=== PATIENT | female | born 1970 | race Caucasian/White ===

== ENCOUNTER 2021-05-20 19:05 | Inpatient (IN) | payer OTHER ==
[~2021-05-20] VITALS: Ht 167.6 cm; Wt 196.6 kg
--- NOTE | ~2021-05-20 | EMS ---
[place] [address] EMS Patient Care Report Name: DEBORAH COLBERT Room #: 246-P ADM IN M.R.#: [id number] Admission: 05/20/21 Attend Phys: Charisma Ashby MD Discharge: Date of : 70 Report #: [id number] THIS REPORT FOR: //name// Report Transmitted: 05/22/2021 11:18 EMS Care Summary [place], [place]/[facility] Incident [id number] @ 05/20/2021 18:24 Incident [address] [place] [address] Patient DEBORAH COLBERT Female, 50 Years 1970 Patient Address [address] [place] [address] Patient History Hypertension (HTN),Type 2 Diabetes,Novel Coronavirus (COVID-19), Patient Allergies No known allergies, Patient Medications Other, Chief Complaint WEAK Disposition Transported No Lights/[place] Dispatch Reason Chest Pain (Non-Traumatic) Transported To [facility] Narrative WE ARRIVED ON SCENE TO FIND FAMILY AT HOUSE OF PT WHO LIVES ALONE. PT WAS LYING ON HER BEDROOM FLOOR. PT IS MORBIDLY OBESE AND HAS BEEN UNABLE TO GET UP AND PER FAMILY IT SOUNDS LIKE PT HAS BEEN THERE MOST OF THE DAY AND IT APPEARS PT HAS BEEN LYING THERE FOR SOME TIME TOO. PT WAS FEELING [place] [address] EMS Patient Care Report Name: DEBORAH COLBERT Room #: 246-P ADM IN M.R.#: [id number] Admission: 05/20/21 Attend Phys: Charisma Ashby MD Discharge: Date of : 70 Report #: [id number] FLOOR WHEN TRYING TO GET OUT OF BED AND HAS NO INJURY FROM THAT SHE SAID. PT SEEMED A LITTLE DISORIENTED SEVERAL TIMES DURING ASSESTMMENT. PT WAS ABLE TO PROVIDE CORRECT ANSERS BUT IT TOOK HER A MOMENT TO FOCUS. PT O2 SAT GAVE SEVERAL READINGS OF 87% TO 95%. PT THEN TOLD US SHE TESTED POSITIVE FOR COVID ON WEDNESDAY (3 DAYS AGO). PT HAD BEEN COUGHING WHILE ON SCENE WITH US AND AFTER WE GOT PT OFF THE FLOOR AND ON TO HER BED SITTING UPRIGHT. PT WITH THIS WEAKNESS AND FEVER DECIDED TO GO TO ER. PT TRANSPORTED AND HAD NO OTHER COMPLAINTS EN ROUTE. CARE HANDED OVER TO ER R. Initial Vitals @18:49P: 110,R: 18,Pain: 0/10,GCS: 15,SpO2: 88, @18:30P: 106,R: 18,BP: 110/66,Pain: 0/10,GCS: 15,Temp: 100.1F,Glucose: 216,SpO2: 97,Revised Trauma: 12, Assessments @18:28MENTAL:Person Oriented,Event Oriented,Place Oriented,Time Oriented,SKIN:Hot,HEENT:Neck/Airway: No Abnormalities,LUNG SOUNDS:General: No Abnormalities,ABDOMEN:General: No Abnormalities,PELVIS//GI:EXTREMITIES:Left Arm: No Abnormalities,Right Arm: No Abnormalities,Left Leg: No Abnormalities,Right Leg: No Abnormalities,PULSE:Radial: 2+ Normal,NEURO:No Abnormalities, Impression COVID-19 - Confirmed by testing Procedures @18:28ALS AssessmentResponse: UnchangedSucceeded@18:35Oxygen FlowRate: 3 Device: Nasal Cannula (NC) Response: Unchanged@18:503-Lead ECGResponse: UnchangedSucceeded Timeline 18:23,Call Received 18:23,Dispatch Notified 18:24,Dispatched 18:25,En Route 18:27,On Scene 18:28,At Patient 18:28,ALS Assessment,Response: UnchangedSucceeded, 18:30,BP: 110/66 M,PULSE: 106,RR: 18 R,SPO2: 97 Ox,ETCO2: ,B,PAIN: 0,GCS: 15, 18:35,Oxygen FlowRate: 3 Device: Nasal Cannula (NC) Response: Unchanged 18:49,BP: / M,PULSE: 110,RR: 18 R,SPO2: 88 Ox,ETCO2: ,BG: ,PAIN: 0,GCS: 15, 18:50,3-Lead ECG,Response: UnchangedSucceeded, 18:52,Depart Scene 18:58,At Destination 19:23,Call Closed [address] [address] EMS Patient Care Report Name: DEBORAH COLBERT Room #: 246-P ADM IN M.R.#: [id number] Admission: 05/20/21 Attend Phys: Chairsma Ashby MD Discharge: Date of : 70 Report #: [id number] Disclaimer v1.1 Copyright 2021 [employer] This EMS Care Summary contains data elements from the applicable legal record (which may be displayed differently). It is designed to provide pertinent information for the following purposes: continuity of care, clinical quality, and state data reporting. The complete legal record is available to ED staff and administrators of the receiving hospital in [employer]'s Patient Tracker. All data is provided "as is."
--- NOTE | ~2021-05-20 | EMS ---
[place] [id number] EMS Patient Care Report Name: DEBORAH COLBERT Room #: 246-P ADM IN M.R.#: [id number] Admission: 05/20/21 Attend Phys: Charisma Ashby MD Discharge: Date of : 70 Report #: [id number] THIS REPORT FOR: //name// Report Transmitted: 05/21/2021 09:20 EMS Care Summary [place], [place]/[facility] Incident [id number] @ 05/20/2021 18:24 Incident Location [address] [place] [address] Patient DEBORAH COLBERT Female, 50 Years 1970 Patient Address [address] [place] [address] Patient History Hypertension (HTN),Type 2 Diabetes,Novel Coronavirus (COVID-19), Patient Allergies No known allergies, Patient Medications Other, Chief Complaint WEAK Disposition Transported No Lights/[place] Dispatch Reason Chest Pain (Non-Traumatic) Transported To [facility] Narrative WE ARRIVED ON SCENE TO FIND FAMILY AT HOUSE OF PT WHO LIVES ALONE. PT WAS LYING ON HER BEDROOM FLOOR. PT IS MORBIDLY OBESE AND HAS BEEN UNABLE TO GET UP AND PER FAMILY IT SOUNDS LIKE PT HAS BEEN THERE MOST OF THE DAY AND IT APPEARS PT HAS BEEN LYING THERE FOR SOME TIME TOO. PT WAS FEELING [place] [address] EMS Patient Care Report Name: DEBORAH COLBERT Room #: 246-P ADM IN M.R.#: [id number] Admission: 05/20/21 Attend Phys: Charisma Ashby MD Discharge: Date of : 70 Report #: [id number] FLOOR WHEN TRYING TO GET OUT OF BED AND HAS NO INJURY FROM THAT SHE SAID. PT SEEMED A LITTLE DISORIENTED SEVERAL TIMES DURING ASSESTMMENT. PT WAS ABLE TO PROVIDE CORRECT ANSERS BUT IT TOOK HER A MOMENT TO FOCUS. PT O2 SAT GAVE SEVERAL READINGS OF 87% TO 95%. PT THEN TOLD US SHE TESTED POSITIVE FOR COVID ON WEDNESDAY (3 DAYS AGO). PT HAD BEEN COUGHING WHILE ON SCENE WITH US AND AFTER WE GOT PT OFF THE FLOOR AND ON TO HER BED SITTING UPRIGHT. PT WITH THIS WEAKNESS AND FEVER DECIDED TO GO TO ER. PT TRANSPORTED AND HAD NO OTHER COMPLAINTS EN ROUTE. CARE HANDED OVER TO ER R. Initial Vitals @18:49P: 110,R: 18,Pain: 0/10,GCS: 15,SpO2: 88, @18:30P: 106,R: 18,BP: 110/66,Pain: 0/10,GCS: 15,Temp: 100.1F,Glucose: 216,SpO2: 97,Revised Trauma: 12, Assessments @18:28MENTAL:Person Oriented,Event Oriented,Place Oriented,Time Oriented,SKIN:Hot,HEENT:Neck/Airway: No Abnormalities,LUNG SOUNDS:General: No Abnormalities,ABDOMEN:General: No Abnormalities,PELVIS//GI:EXTREMITIES:Left Arm: No Abnormalities,Right Arm: No Abnormalities,Left Leg: No Abnormalities,Right Leg: No Abnormalities,PULSE:Radial: 2+ Normal,NEURO:No Abnormalities, Impression COVID-19 - Confirmed by testing Procedures @18:28ALS AssessmentResponse: UnchangedSucceeded@18:35Oxygen FlowRate: 3 Device: Nasal Cannula (NC) Response: Unchanged@18:503-Lead ECGResponse: UnchangedSucceeded Timeline 18:23,Call Received 18:23,Dispatch Notified 18:24,Dispatched 18:25,En Route 18:27,On Scene 18:28,At Patient 18:28,ALS Assessment,Response: UnchangedSucceeded, 18:30,BP: 110/66 M,PULSE: 106,RR: 18 R,SPO2: 97 Ox,ETCO2: ,B,PAIN: 0,GCS: 15, 18:35,Oxygen FlowRate: 3 Device: Nasal Cannula (NC) Response: Unchanged 18:49,BP: / M,PULSE: 110,RR: 18 R,SPO2: 88 Ox,ETCO2: ,BG: ,PAIN: 0,GCS: 15, 18:50,3-Lead ECG,Response: UnchangedSucceeded, 18:52,Depart Scene 18:58,At Destination 19:23,Call Closed [address] [address] EMS Patient Care Report Name: DEBORAH COLBERT Room #: 246-P ADM IN M.R.#: [id number] Admission: 05/20/21 Attend Phys: Charisma Ashby MD Discharge: Date of : 70 Report #: [id number] Disclaimer v1.1 Copyright 202 [employer] This EMS Care Summary contains data elements from the applicable legal record (which may be displayed differently). It is designed to provide pertinent information for the following purposes: continuity of care, clinical quality, and state data reporting. The complete legal record is available to ED staff and administrators of the receiving hospital in [facility]'s Patient Tracker. All data is provided "as is."
[2021-05-20 19:06] VITALS: BP 139/53
[2021-05-20 19:32] LABS: HEMATOCRIT 36.6 % (37.0-47.0); HEMOGLOBIN 11.9 gm/dL (12.0-15.0); MCH 27.5 pg (26.0-34.0); MCHC 32.5 g/dL (28.0-37.0); MCV 84.7 fL (80.0-100.0); PLATELET COUNT 271 thou/uL (150-400); RBC 4.33 mil/uL (4.20-5.00); RDW 15.7 % (10.5-14.5); WBC 18.2 thou/uL (4.0-11.0)
[2021-05-20 19:37] LABS: BE(vivo) 4.9 mmol/L (-2 to +3); PO2 76.5 mmHg (80.0-100.0); pH 7.393 (7.360-7.450)
[2021-05-20 19:44] LABS: CALCIUM 8.1 mg/dL (8.5-10.1); CREATININE 1.9 mg/dL (0.6-1.0)
[2021-05-20 20:01] LABS: ALBUMIN 2.6 g/dL (3.4-5.0); TOTAL BILIRUBIN 0.7 mg/dL (0.2-1.0); TOTAL PROTEIN 7.5 g/dL (6.4-8.2); TROPONIN-I 0.19 ng/mL (<0.06)
[2021-05-20 20:18] LABS: ABSOLUTE NEUTROPHILS 15.7 thou/uL (1.4-8.2); ANISOCYTOSIS 1+; PLATELET ESTIMATE NORMAL; POIKILOCYTOSIS 1+; POLYCHROMASIA 1+; SCHISTOCYTES 1+
[2021-05-20 21:26] LABS: URINE BILIRUBIN NEGATIVE (Negative); URINE BLOOD 2+ (Negative); URINE CLARITY SL CLOUDY; URINE COLOR YELLOW; URINE GLUCOSE-RANDOM* NEGATIVE (Negative); URINE KETONES NEGATIVE (Negative); URINE LEUKOCYTES-REFLEX 1+ (Negative); URINE NITRITE-REFLEX NEGATIVE (Negative); URINE PROTEIN (DIPSTICK) TRACE (Negative); URINE SPECIFIC GRAVITY >= 1.030 (1.005-1.035); URINE UROBILINOGEN 0.2 E.U./dl (0.2-1.0)
[2021-05-20 21:45] LABS: SQUAMOUS 4-10 Moderate /LPF (0-3); WBC CLUMPS Few (None Seen)
[2021-05-20 21:46] LABS: BACTERIA-REFLEX >30 Many /HPF (None Seen); CRYSTALS None Seen /LPF (None Seen); HYALINE CASTS 4-10 Moderate /LPF (None Seen); MUCUS 4-6 Moderate strn/LPF (None Seen)
[2021-05-20 22:12] VITALS: BP 149/56
[2021-05-20 23:47] VITALS: BP 122/62
[2021-05-21] VITALS (32 sets, daily range): BP systolic 85–136; BP diastolic 37–82
--- NOTE | 2021-05-21 00:56 | NUR ---
This RN admitted patient to room 246 at 0010 in the morning. Patient remains stable on the Bipap for now. This RN spoke to Janee,sister, at 0056 to answer all questions and update family.
[2021-05-21] MEDS ORDERED: HYDROCHLOROTHIA25 M1 PO (01:39)
[2021-05-21] MEDS ORDERED: LIPITOR 40 MG T40 M1 PO (01:39)
[2021-05-21] MEDS ORDERED: LOSARTAN POTAS100 MG PO (01:40)
[2021-05-21] MEDS ORDERED: CLONIDINE HCL0.1 MG PO (01:40)
[2021-05-21 02:36] LABS: HEMATOCRIT 35.7 % (37.0-47.0); HEMOGLOBIN 11.5 gm/dL (12.0-15.0); MCH 27.3 pg (26.0-34.0); MCHC 32.1 g/dL (28.0-37.0); RBC 4.2 mil/uL (4.20-5.00); RDW 15.4 % (10.5-14.5); WBC 14.6 thou/uL (4.0-11.0)
[2021-05-21 04:27] LABS: BE(vivo) 3.3 mmol/L (-2 to +3); HCO3 29.6 mmol/L (22.0-26.0); PCO2 52.7 mmHg (35.0-45.0); PO2 70.8 mmHg (80.0-100.0); pH 7.368 (7.360-7.450); sO2 93.5 % (92.0-98.0)
[2021-05-21] MEDS ORDERED: METFORMIN HCL500 MG PO (05:05)
[2021-05-21] MEDS ORDERED: METOPROLOL SUC200 MG PO (05:05)
[2021-05-21] MEDS ORDERED: NORVASC5 MG PO (05:05)
[2021-05-21 05:13] LABS: ALBUMIN 2.3 g/dL (3.4-5.0); CALCIUM 7.5 mg/dL (8.5-10.1); CREATININE 1.3 mg/dL (0.6-1.0); DIRECT BILIRUBIN 0.2 mg/dL (<0.1-0.2); PHOSPHORUS 2.8 mg/dL (2.5-4.9); POTASSIUM 3.9 mmol/L (3.5-5.1); TOTAL BILIRUBIN 0.4 mg/dL (0.2-1.0); TOTAL PROTEIN 6.9 g/dL (6.4-8.2); TROPONIN-I 0.31 ng/mL (<0.06)
--- NOTE | 2021-05-21 07:48 | EKG ---
[address] [place] [address] ELECTROCARDIOGRAM REPORT Name: DEBORAH COLBERT Room #: 246-P ADM IN M.R.#: [id number] Admission: 05/20/21 Attend Phys: Rishi Flood MD Discharge: Date of : 70 Report #: [id number] [facility] ED Test Date: 2021-05-20 Test Time: 19:18:13 Pat Name: DEBORAH COLBERT Department: Room: 246 Gender: F [employer] Attendant: JESSICA : 1970 Requested By: Jackson Armstrong Order Number: [id number] MD: Shaun Alas Measurements Intervals [place] Rate: 104 P: 44 AR: 152 QRS: 16 QRSD: 83 T: 72 QT: 347 QTc: 457 Interpretive Statements Pacemaker spikes or artifacts Sinus tachycardia Low voltage, precordial leads Artifact in lead(s) I,III,aVR,aVL,aVF No previous ECG available for comparison Electronically Signed On 05-21-2021 7:48:30 CDT by Shaun Alas [email or web address] <ELECTRONICALLY SIGNED> By: Shaun Alas MD, [facility] 05/21/21 0748 17 17 Shaun Alas MD, [facility] /EPI
--- NOTE | 2021-05-21 10:40 | NUR ---
vat consulted for cvad, pt is unable to tolerate hob down. DISCUSSED PICC INSERTION PT IS AGREEABLE. DUE TO MORBID OBESITY, ONLY CEPHALIC VESSELS VISIBLE. ATTEMPTED BOTH ARM, UNSUCCESSFUL. PRIMARY RN NOTIFIES AND PT WILL BE REFERED TO IR.
--- NOTE | 2021-05-21 11:40 | NUR ---
Chart review. COVID +, Discussed during los with hospitalist and unite rounds. Requiring BIPAP 100% Unable to visit with her, on enhanced isolation. Cm note she came in through er, family was unable to reach her, checked on her and found her on floor at her home. She had pfizer covid vaccine x 2. Cm spoke with her brother rocky wong [phone], he primary contact for her. Annmarie lives home alone, independent. Zenon own medication. works outside the home at [employer] in [employer]. She keeps her medical stuff private per rocky. Will cont following as needed for dc needs.
--- NOTE | 2021-05-21 19:44 | NUR ---
This RN spoke to Veena Loja NP regarding patients temperature of 100.3. Discussed holding off to tylenol for now. No orders received, will continue to monitor.
--- NOTE | 2021-05-21 20:20 | NUR ---
RN removed bipap to help patient with oral care, patient did not tolerate well. Desaturated to 77% and took a long time to sole layer hand. Will continue to monitor.
--- NOTE | 2021-05-21 20:43 | NUR ---
PATIENT'S SISTER AND BROTHER, VIKI, CALLED FROM [phone] AND THEY WERE UPDATED AND EDUCATED ON THE PATIENT'S CONDITION AND PLAN OF CARE. JOZEF HANNA, AND THE PATIENT'S MOTHER FACETIMED WITH THE PATIENT FROM [phone]. DURING THAT TIME, THE TOBACCO STEMMER TALKED WITH ALL OF THEM IN THE ROOM.
[2021-05-21 21:12] LABS: BE(vivo) 6.1 mmol/L (-2 to +3); HCO3 32.2 mmol/L (22.0-26.0); PCO2 53.1 mmHg (35.0-45.0); PO2 57.6 mmHg (80.0-100.0); sO2 89.5 % (92.0-98.0)
--- NOTE | 2021-05-21 23:55 | NUR ---
This RN and team intubated patient at [address] Samayoa. Discussed with patient prior thoroughly and talked to Alfonso, brother. Patient facetimed family before intubation. Patient remains on maximum support and is thoroughly sedated. Will continue to monitor.
[2021-05-22] VITALS (33 sets, daily range): BP systolic 87–137; BP diastolic 53–87
[2021-05-22 01:13] LABS: BE(vivo) 3.7 mmol/L (-2 to +3); PCO2 60.2 mmHg (35.0-45.0); PO2 68.5 mmHg (80.0-100.0); sO2 92.1 % (92.0-98.0)
[2021-05-22 02:10] LABS: GLYCOHEMOGLOBIN (HGB A1C) 7.3 % (4.8-5.6)
[2021-05-22 03:15] LABS: HEMATOCRIT 33.8 % (37.0-47.0); HEMOGLOBIN 10.9 gm/dL (12.0-15.0); MCH 27.8 pg (26.0-34.0); MCHC 32.4 g/dL (28.0-37.0); MCV 85.8 fL (80.0-100.0); RBC 3.94 mil/uL (4.20-5.00); RDW 15.6 % (10.5-14.5); WBC 12.1 thou/uL (4.0-11.0)
[2021-05-22 03:26] LABS: ALBUMIN 2.2 g/dL (3.4-5.0); CALCIUM 8.1 mg/dL (8.5-10.1); CREATININE 0.9 mg/dL (0.6-1.0); DIRECT BILIRUBIN 0.1 mg/dL (<0.1-0.2); PHOSPHORUS 2.5 mg/dL (2.6-4.7); POTASSIUM 4.2 mmol/L (3.5-5.1); TOTAL BILIRUBIN 0.4 mg/dL (0.2-1.0); TOTAL PROTEIN 6.8 g/dL (6.4-8.2)
--- NOTE | 2021-05-22 08:40 | NUR ---
Updated brother, Fidel, regarding patient status. Extensive education done with him re: plan of care and interventions. Questions answered.
[2021-05-22 11:02] LABS: BE(vivo) 3.2 mmol/L (-2 to +3); PCO2 56.4 mmHg (35.0-45.0); PO2 126.4 mmHg (80.0-100.0); pH 7.344 (7.360-7.450); sO2 98.3 % (92.0-98.0)
--- NOTE | 2021-05-22 12:52 | NUR ---
Per Dr MALLOY, discontinue IV maintenance fluids once tube feed at goal and water flushes. Add 1 packet beneprotein in each water flush
--- NOTE | 2021-05-22 14:21 | NUR ---
Per Dr. Samayoa, ok not to attempt proning patinet due to patient habitus. Patient currently oxygenating well with APRV settings. Dr. Samayoa spoke to patient's brother, Fidel to notify him of patient status and contraindications to proning at this time.
--- NOTE | 2021-05-22 14:38 | NUR ---
A RIGHT IJ #6F TRIPLE LUMEN CENTRAL LINE WAS PLACED AFTER A BEDSIDE TIMEOUT WAS COMPLETED PER HOSPITAL POLICY. THE 25CM LINE WAS ADVANCED TO 7CM EXTERNAL. A STAT CHEST XRAY CONFIRMED LINE IN GOOD POSITION FOR USE. ACID TREATER NOTIFIED.
--- NOTE | 2021-05-22 15:03 | HC ---
[facility] [place] [address] CONSULTATION Name: DEBORAH COLBERT Room #: 246-P ADM IN M.R.#: [id number] Admission: 05/20/21 Attend Phys: Charisma Ashby MD Discharge: Date of : 70 Report #: [id number] THIS REPORT FOR: cc: FAM - No family physician/PCP FAM - No family physician/PCP Cedric Lloyd MD ~ DATE OF SERVICE: 05/21/2021 INFECTIOUS DISEASE CONSULTATION ATTENDING PHYSICIAN: Dr. Ashby REASON FOR EVALUATION: COVID-19 infection, complicated by pneumonitis, respiratory failure, fall, with rhabdomyolysis. HISTORY OF PRESENT ILLNESS: Chart reviewed. The patient examined. This is a 50-year-old woman with known history of diabetes mellitus as well as hypertension, who was brought to the Emergency Room subsequent to a fall. She has no recollection. She is not aware of how long she was down. Noted she has not been feeling well prior to last weekend and she was tested for COVID-19 on Wednesday, which had been 05/18/2021. She was confirmed to be positive. When she was found, she had saturations in the 60s. She was supplied with oxygen and now currently is on 100% BiPAP. She is seen in the intensive care unit. She is fairly alert. Again, she has no recollection of the events. Evaluation in the Emergency Room, ABGs; pH 7.393, pCO2 of 52, pO2 of 76.5, on 100%. Lactic acid of 2.5. Procalcitonin elevated at 6.89. White count of 18.2. Creatinine was elevated at 1.9. Chest x-ray did show bilateral pulmonary opacities. Urinalysis with 16-25 white cells. Blood cultures collected at time of admission are sterile thus far. She was noted to be febrile on admission as well at 102.1, currently is afebrile. She was empirically started on therapy with doxycycline, ceftriaxone, remdesivir and azithromycin. ALLERGIES: None known. MEDICATIONS: Include ceftriaxone, ascorbic acid, famotidine, enoxaparin, dexamethasone, ipratropium, zinc, doxycycline, remdesivir. PAST MEDICAL HISTORY: Diabetes mellitus type 2, hyperlipidemia, hypertension, morbid obesity. SOCIAL HISTORY: Nonsmoker, no ethanol, no illicit drug use. FAMILY HISTORY: Noncontributory. REVIEW OF SYSTEMS: Otherwise, unremarkable. Denies any significant GI related complaints at this point. Had had some diarrhea that seemed to improve. [address] [address] CONSULTATION Name: DEBORAH COLBERT Room #: 246-P [facility]#: [id number] Admission: 05/20/21 Attend Phys: Charisma Ashby MD Discharge: Date of : 70 Report #: [id number] PHYSICAL EXAMINATION: GENERAL: She is morbidly obese. She is generally alert, mild to moderate distress. VITAL SIGNS: Temperature 99, pulse 86, respirations 25, blood pressure is 124/76. SKIN: Warm, dry, no rashes. HEENT: BiPAP in place. Normocephalic. Extraocular muscles intact. NECK: Supple. LUNGS: Diminished overall due to her ____. HEART: Distant, appears to be regular. ABDOMEN: Obese, large pannus, soft, nontender. EXTREMITIES: No cyanosis. GENITOURINARY AND RECTAL: Deferred. LABORATORY AND IMAGING DATA: CPK elevated at ____ consistent with rhabdomyolysis. Troponin 0.38. Chest x-ray in followup patchy nodular infiltrates. Blood cultures sterile thus far. Electrolytes: Sodium 143, potassium 3.9, chloride 104, bicarbonate is 30, anion gap of 9, BUN and creatinine 38 and 1.3 down from 1.9, AST 134, ALT of 62, albumin 2.3, total protein 6.9. Estimated GFR of 43. ABG; pH 7.368, pCO2 of 52.7, pO2 of 70.8 on 100% BiPAP. Most recent CBC: White count of 14.6, H and H 11.5 and 35.7, platelets of 248. ASSESSMENT: 1. COVID-19 infection, complicated by pneumonitis and respiratory failure with acute respiratory distress syndrome. 2. Encephalopathy with apparent fall, lack of recollection, ____ rhabdomyolysis and renal failure, does have hepatic injury as well. 3. Complicated urinary tract infection. 4. Diabetes mellitus. 5. Hypertension. 6. Morbid obesity. PLAN: We will continue empiric antibacterial therapy. We will adjust dosing and regimen. She remains quite tenuous at this point. Continue ____ ventilation therapy. There is concern she may require intubation mechanical ventilatory support. We will await cultures. <ELECTRONICALLY SIGNED> By: Cedric Lloyd MD 05/22/21 1503 [id number] Cedric Lloyd MD /nt
[2021-05-23] VITALS (45 sets, daily range): BP systolic 99–158; BP diastolic 61–96
[2021-05-23 02:46] LABS: HEMATOCRIT 34.3 % (37.0-47.0); HEMOGLOBIN 11.1 gm/dL (12.0-15.0); MCH 27.6 pg (26.0-34.0); MCHC 32.5 g/dL (28.0-37.0); RBC 4.03 mil/uL (4.20-5.00); RDW 15.7 % (10.5-14.5); WBC 11.5 thou/uL (4.0-11.0)
[2021-05-23 03:52] LABS: CALCIUM 8.1 mg/dL (8.5-10.1); DIRECT BILIRUBIN 0.1 mg/dL (<0.1-0.2); PHOSPHORUS 3.8 mg/dL (2.6-4.7); POTASSIUM 4.3 mmol/L (3.5-5.1); TOTAL BILIRUBIN 0.4 mg/dL (0.2-1.0); TOTAL PROTEIN 6.3 g/dL (6.4-8.2)
[2021-05-23 04:09] LABS: CREATININE 1.9 mg/dL (0.6-1.0)
[2021-05-23 04:49] LABS: BE(vivo) 0.4 mmol/L (-2 to +3); HCO3 26.8 mmol/L (22.0-26.0); PCO2 50.7 mmHg (35.0-45.0); PO2 99.8 mmHg (80.0-100.0); pH 7.341 (7.360-7.450); sO2 97.1 % (92.0-98.0)
--- NOTE | 2021-05-23 12:32 | NUR ---
Nurse called Janee, no answer. Nurse called Fidel and updated him on patients status, plan of care, and treatments. Plan to video conference at 1400 today with patient and family in room.
--- NOTE | 2021-05-23 14:08 | NUR ---
Family is video conferencing with ipad at this time.
--- NOTE | 2021-05-23 15:02 | NUR ---
Chart review, COVID +, Enhanced isolation. Vent, nutritional support. No anticipated discharge. Will cont. following as needed for dc needs.
--- NOTE | 2021-05-23 16:42 | NUR ---
Nurse informed Dr. Samayoa of urine output. Orders received.
--- NOTE | 2021-05-23 20:00 | NUR ---
Patient not progressing towards plan of care as evidenced by continued need for ventilator support. RT was able to wean down on fio2, however she remains in AVAPS setting. Plan of care is to continue to monitor patient oxygen requires, provided patient specific interventions as needed, and provide assessments.
[2021-05-24] VITALS (46 sets, daily range): BP systolic 104–130; BP diastolic 59–79
[2021-05-24 04:56] LABS: HEMATOCRIT 34.2 % (37.0-47.0); HEMOGLOBIN 11.2 gm/dL (12.0-15.0); MCH 27.8 pg (26.0-34.0); MCHC 32.6 g/dL (28.0-37.0); MCV 85.4 fL (80.0-100.0); RBC 4.01 mil/uL (4.20-5.00); WBC 10.2 thou/uL (4.0-11.0)
[2021-05-24 05:02] LABS: BE(vivo) -1.3 mmol/L (-2 to +3); HCO3 24.6 mmol/L (22.0-26.0); PCO2 46.2 mmHg (35.0-45.0); PO2 86.8 mmHg (80.0-100.0); pH 7.345 (7.360-7.450); sO2 96.1 % (92.0-98.0)
[2021-05-24 05:10] LABS: CALCIUM 8.2 mg/dL (8.5-10.1); DIRECT BILIRUBIN 0.1 mg/dL (<0.1-0.2); PHOSPHORUS 4.3 mg/dL (2.5-4.9); POTASSIUM 4.2 mmol/L (3.5-5.1); TOTAL BILIRUBIN 0.3 mg/dL (0.2-1.0); TOTAL PROTEIN 6.6 g/dL (6.4-8.2)
--- NOTE | 2021-05-24 16:46 | NUR ---
PT INTUBATED AND SEDATED, VENT SETTINGS TITRATED DOWN BY RT. PT WITH LOW GRADE FEVER 99.0, ADEQUATE UOP, NO BM, TOLERATING TUBE FEEDS AT GOAL. NO SEDATION VACATION DUE TO HIGH VENT SETTINGS. NO CPAP TRIAL TODAY. PT HAS LIGHT MENSTRAL CYCLE. FENTYNL/PROP/VERSED GTT'S FOR VENT MANAGEMENT. PT AND FAMILY HAVE BEEN THOUROUGHLY UPDATED AND EDUCATED ON PT CONDITION AND POC. PT SLOWLY PROGRESSING TOWARDS POC.
[2021-05-25] VITALS (75 sets, daily range): BP systolic 113–149; BP diastolic 57–110
[2021-05-25 04:51] LABS: BE(vivo) 0.4 mmol/L (-2 to +3); HCO3 26.4 mmol/L (22.0-26.0); PCO2 48.3 mmHg (35.0-45.0); PO2 104.1 mmHg (80.0-100.0); pH 7.356 (7.360-7.450); sO2 97.5 % (92.0-98.0)
[2021-05-25 04:57] LABS: HEMATOCRIT 35.1 % (37.0-47.0); HEMOGLOBIN 11.5 gm/dL (12.0-15.0); MCH 27.6 pg (26.0-34.0); MCHC 32.7 g/dL (28.0-37.0); MCV 84.3 fL (80.0-100.0); RBC 4.17 mil/uL (4.20-5.00); RDW 15.7 % (10.5-14.5); WBC 10.3 thou/uL (4.0-11.0)
[2021-05-25 05:53] LABS: ALBUMIN 2.2 g/dL (3.4-5.0); CALCIUM 8.1 mg/dL (8.5-10.1); CREATININE 1.9 mg/dL (0.6-1.0); DIRECT BILIRUBIN 0.1 mg/dL (<0.1-0.2); POTASSIUM 4.3 mmol/L (3.5-5.1); TOTAL BILIRUBIN 0.4 mg/dL (0.2-1.0); TOTAL PROTEIN 6.9 g/dL (6.4-8.2)
[2021-05-25 14:25] LABS: BE(vivo) 0.3 mmol/L (-2 to +3); PCO2 46.3 mmHg (35.0-45.0); PO2 92.3 mmHg (80.0-100.0); pH 7.368 (7.360-7.450); sO2 96.8 % (92.0-98.0)
--- NOTE | 2021-05-25 14:50 | NUR ---
1448HRS - VERIFIED WITH PHARMACY HYDROMORPHONE INITIAL AND TITRATION 2.5ML/HR AND 1.25ML/HR
--- NOTE | 2021-05-25 17:18 | NUR ---
1445HRS - PT BROTHER CALLED AND WAS UPDATED ON PT'S STATUS AND CONDITION. PT'S BROTHER REQUEST PT'S POSSIBLE OUT COME AND WANTED TO SUGGEST MEDICATIONS THAT HIS FRIEND A DOCTOR SUGGESTED TO GIVE. PT ALSO WOULD LIKE TO TALK TO DR. MALLOY TO FOLLOW UP WITH HIS SISTER'S CONDITION.
[2021-05-26] VITALS (34 sets, daily range): BP systolic 107–156; BP diastolic 50–103
[2021-05-26 04:41] LABS: CALCIUM 8.3 mg/dL (8.5-10.1); CREATININE 1.6 mg/dL (0.6-1.0); POTASSIUM 4.3 mmol/L (3.5-5.1)
[2021-05-26 04:55] LABS: HEMATOCRIT 34.1 % (37.0-47.0); HEMOGLOBIN 11.2 gm/dL (12.0-15.0); MCHC 32.9 g/dL (28.0-37.0); MCV 85.1 fL (80.0-100.0); RDW 16.1 % (10.5-14.5); WBC 11.6 thou/uL (4.0-11.0)
--- NOTE | 2021-05-26 06:34 | NUR ---
ASSUMED CARE OF PATIENT AT 1900. PATIENT IS VERY DIFFICULT TO SEDATE, REMAINS AWAKE MOST OF THE NIGHT. FIGHTS AND REFUSES ORAL CARE. NO FAMILY CALLED THIS SHIFT.
--- NOTE | 2021-05-26 12:01 | NUR ---
1200HRS - PT VENT SETTING CHANGED FROM APRV 40% TO PRESSURE CONTROL 40%, PEEP OF 10, RATE 16
--- NOTE | 2021-05-26 13:36 | NUR ---
1500HRS - OSMOLITE 1.5 STARTED WITH GOAL OF 45ML/HR AND 250Q6 FLUSH
--- NOTE | 2021-05-26 14:15 | NUR ---
Chart review, discussed during am unite rounds and los. COVID, Isolation. Vent, nutritional support. Fidel patient brother would like call from jose alejandro MENDOZA notified hospitalist. Lakia with [employer] left message to assist with dcp if needed, # [phone]. Will cont. following as needed for dc needs.
[2021-05-26 16:39] LABS: HCO3 23.5 mmol/L (22.0-26.0); PCO2 38.8 mmHg (35.0-45.0); PO2 96.7 mmHg (80.0-100.0); pH 7.401 (7.360-7.450); sO2 97.4 % (92.0-98.0)
--- NOTE | 2021-05-26 17:39 | NUR ---
1742HRS - PT'S BROTHER CALLED. HE WAS UPDATED AND INFORMED OF PT'S STATUS AND CONDITION. REPORTED PT'S VENT SETTINGS, MEDICATIONS GIVEN, AND V/S.
[2021-05-27] VITALS (58 sets, daily range): BP systolic 106–187; BP diastolic 20–85
--- NOTE | 2021-05-27 18:47 | NUR ---
1825HRS - CALLED HOSPITALIST DUE TO INCREASED B/P.
--- NOTE | 2021-05-27 18:48 | NUR ---
1840HRS - PT'S BROTHER CALLED AND UPDATED ON PT'S STATUS AND CONDITION. PT'S BROTHER REQUESTED TO TALK TO
[2021-05-28] VITALS (52 sets, daily range): BP systolic 103–169; BP diastolic 28–99
[2021-05-28 08:51] LABS: HEMATOCRIT 30.3 % (37.0-47.0); HEMOGLOBIN 9.8 gm/dL (12.0-15.0); MCH 27.7 pg (26.0-34.0); MCHC 32.2 g/dL (28.0-37.0); MCV 86.1 fL (80.0-100.0); PLATELET COUNT 266 thou/uL (150-400); RBC 3.52 mil/uL (4.20-5.00); RDW 15.9 % (10.5-14.5); WBC 7.7 thou/uL (4.0-11.0)
[2021-05-28 09:08] LABS: ALBUMIN 2.2 g/dL (3.4-5.0); CALCIUM 9.2 mg/dL (8.5-10.1); POTASSIUM 4.6 mmol/L (3.5-5.1); TOTAL BILIRUBIN 0.4 mg/dL (0.2-1.0); TOTAL PROTEIN 6.6 g/dL (6.4-8.2)
[2021-05-28 11:30] LABS: MYELOCYTES 3 %
[2021-05-28 11:31] LABS: ABSOLUTE NEUTROPHILS 5.9 thou/uL (1.4-8.2); ANISOCYTOSIS 1+; METAMYELOCYTES 7 %
--- NOTE | 2021-05-28 13:00 | NUR ---
DR AGUILAR AND DR VILLANUEVA BOTH INFORMED OF PATIENT'S BLEEDING AT RIJ INSERTION SITE. DR VILLANUEVA ALSO INFORMED THAT PATIENT WAS NOT TOLERATING TUBE FEEDINGS AND DROP IN HBG.
[2021-05-28 16:38] LABS: BE(vivo) 6.7 mmol/L (-2 to +3); HCO3 33.1 mmol/L (22.0-26.0); PO2 79.1 mmHg (80.0-100.0); pH 7.405 (7.360-7.450); sO2 95.5 % (92.0-98.0)
--- NOTE | 2021-05-28 20:44 | NUR ---
PATIENT IS NOT PROGRESSING TOWARDS OUTCOME GOALS
[2021-05-29] VITALS (25 sets, daily range): BP systolic 142–203; BP diastolic 49–93
[2021-05-29 05:28] LABS: CALCIUM 9.1 mg/dL (8.5-10.1); CREATININE 0.8 mg/dL (0.6-1.0); POTASSIUM 4.7 mmol/L (3.5-5.1)
--- NOTE | 2021-05-29 14:34 | NUR ---
PT IS NOT PROGRESSING TOWARDS DISCHARGE AT THIS TIME. AT THE TIME OF RNs ARRIVAL, PT'S RIJ SITE WAS BLEEDING ACTIVELY, PROVIDER MADE AWARE PRIOR TO ADMINISTERING PT'S BROTHER WHO IS THE LISASON FOR THE FAMILY CALLED, RN PROVIDED UPDATE, BROTHER STATED THAT HE WANTED A PHONE CALL UPDATE FROM A PROVIDER, RN PROVIDED THE BROTHER'S NUMBER TO THE DUSTING AND BRUSHING MACHINE OPERATOR. NO ACUTE PROCESSES SEEN IN THE PT AT THIS TIME, RN CONTINUING TO MONITOR
[2021-05-30] VITALS (24 sets, daily range): BP systolic 106–162; BP diastolic 39–74
[2021-05-30 04:53] LABS: ALBUMIN 2.2 g/dL (3.4-5.0); CREATININE 0.8 mg/dL (0.6-1.0); POTASSIUM 4.4 mmol/L (3.5-5.1); TOTAL BILIRUBIN 0.4 mg/dL (0.2-1.0); TOTAL PROTEIN 6.4 g/dL (6.4-8.2)
[2021-05-30 05:04] LABS: HEMATOCRIT 28.2 % (37.0-47.0); HEMOGLOBIN 9.2 gm/dL (12.0-15.0); MCH 27.9 pg (26.0-34.0); MCHC 32.7 g/dL (28.0-37.0); MCV 85.5 fL (80.0-100.0); RBC 3.3 mil/uL (4.20-5.00); RDW 15.6 % (10.5-14.5); WBC 6.4 thou/uL (4.0-11.0)
--- NOTE | 2021-05-30 15:04 | NUR ---
Chart review, discussed during am unite rounds, and lost with hospitalist. COVID. Vent and nutritional support. Enhanced isolation. Noted bedside nurse has provided updates to her brother. Will cont. following as needed for dc needs.
--- NOTE | 2021-05-30 18:38 | NUR ---
PT IS NOT PROGRESSING TOWARDS DISCHARGE AT THIS TIME, THIS RN FOUND BUTTOCKS WOUND LAST SHIFT AT 05/29/21 1900, PICTURES HAVE BEEN TAKEN AND FILED TODAY, WOUND CARE CONSULT COORDINATOR WILL BE NOTIFIED. PT IS SEEN THRASHING AROUND IN BED TWICE THIS SHIFT, RAISING HR TO TACHYCARDIA THEN FALLS ASLEEP IMMEDIATELY AFTER DROPPING HR TO 70s. PT HAS BEEN CLEANED UP AND WOUND PICTURES TAKEN. NOT TOLERATING TUBE FEEDINGS, WORK FROM HOME NOTIFIED OF CURRENT HOLD
[2021-05-31] VITALS (24 sets, daily range): BP systolic 131–184; BP diastolic 53–106
--- NOTE | 2021-05-31 07:38 | NUR ---
ASSUMED CARE AT 1900. WAKES EASILY THROUGH SEDATION. NO FEVERS OVERNIGHT. CHANGED KERNS DRAIN BAG D/T HIGH AMOUNT OF SEDIMENT PRESENT, GOOD OUTPUT OVERNIGHT. INCR VERSED D/T AGITATION W/ELEVATED HR IN 130'S. SLOW PROGRESSION TOWARDS GOALS.
[2021-05-31 08:03] LABS: HEMATOCRIT 26.9 % (37.0-47.0); HEMOGLOBIN 8.7 gm/dL (12.0-15.0); MCH 27.5 pg (26.0-34.0); MCHC 32.4 g/dL (28.0-37.0); PLATELET COUNT 225 thou/uL (150-400); RBC 3.17 mil/uL (4.20-5.00); RDW 15.4 % (10.5-14.5); WBC 6.5 thou/uL (4.0-11.0)
[2021-05-31 08:29] LABS: ALBUMIN 2.2 g/dL (3.4-5.0); CREATININE 0.7 mg/dL (0.6-1.0); POTASSIUM 3.8 mmol/L (3.5-5.1); TOTAL BILIRUBIN 0.6 mg/dL (0.2-1.0); TOTAL PROTEIN 6.1 g/dL (6.4-8.2)
[2021-05-31 08:33] LABS: ABSOLUTE NEUTROPHILS 4.3 thou/uL (1.4-8.2); METAMYELOCYTES 1 %; MYELOCYTES 1 %
[2021-05-31 08:34] LABS: ANISOCYTOSIS 1+
--- NOTE | 2021-05-31 10:22 | NUR ---
Sedation on hold for CPAP trial. Pt able to sqeeze hands and shake head no.
[2021-05-31 10:24] LABS: BE(vivo) 9.1 mmol/L (-2 to +3); HCO3 34.9 mmol/L (22.0-26.0); PCO2 54.2 mmHg (35.0-45.0); PO2 64.7 mmHg (80.0-100.0); pH 7.427 (7.360-7.450); sO2 92.8 % (92.0-98.0)
--- NOTE | 2021-05-31 12:05 | NUR ---
Pt did CPAP trial for 1.5 hours. Began to drop sat, restless. Sedation turned back on at half rate.
[2021-06-01] VITALS (30 sets, daily range): BP systolic 105–222; BP diastolic 32–112
--- NOTE | 2021-06-01 06:40 | NUR ---
ASSUMED CARE AT 1900. PT VERY RESTLESS OVERNIGHT, SWINGING LEGS OFF BED, PULLING HIGH VOLUMES ON VENT, TUGGING AT RESTRAINTS, ETC. LOW GRADE FEVER MUCH OF THE NIGHT, GAVE TYLENOL TWICE. ELEVATED BP, SPOKE W/ TRIALS MANAGER LEONIE x2 FOR PRN HTN MEDS. POSSIBLE EXTUBATION TODAY PENDING CPAP TRIAL.
[2021-06-01 10:05] LABS: ABSOLUTE NEUTROPHILS 7.3 thou/uL (1.4-8.2); BASOPHILS 0.7 % (0.0-2.0); HEMATOCRIT 26.5 % (37.0-47.0); HEMOGLOBIN 8.7 gm/dL (12.0-15.0); LYMPHOCYTES 11.4 % (24.0-44.0); MCH 27.8 pg (26.0-34.0); MCV 84.1 fL (80.0-100.0); MONOCYTES 8.2 % (1.0-8.0); PLATELET COUNT 257 thou/uL (150-400); POLYS 77.7 % (36.0-66.0); RBC 3.15 mil/uL (4.20-5.00); RDW 14.9 % (10.5-14.5); WBC 9.5 thou/uL (4.0-11.0)
[2021-06-01 10:17] LABS: ALBUMIN 2.3 g/dL (3.4-5.0); CALCIUM 9.2 mg/dL (8.5-10.1); CREATININE 0.7 mg/dL (0.6-1.0); POTASSIUM 3.4 mmol/L (3.5-5.1); TOTAL PROTEIN 6.3 g/dL (6.4-8.2)
[2021-06-01 10:46] LABS: BE(vivo) 11.7 mmol/L (-2 to +3); HCO3 36.6 mmol/L (22.0-26.0); PO2 61.2 mmHg (80.0-100.0); pH 7.482 (7.360-7.450); sO2 92.7 % (92.0-98.0)
--- NOTE | 2021-06-01 11:39 | NUR ---
PT PULLED TUBE OUT BY 3CM TO 21- DEFLATED THE CUFF AND REINSERTED THE TUBE TO 24CM PER DR AGUILAR.
--- NOTE | 2021-06-01 12:00 | NUR ---
Pt did not tolerate end of CPAP trial - reaching for ETT even while intubated. Pt managed to grab hold of suction tubing and pull, subsequently removing inline suction and dislodging tube. ETT advanced back to original position by MD PAWAN aware and at bedside.
[2021-06-01 20:56] LABS: URINE BILIRUBIN NEGATIVE (Negative); URINE BLOOD TRACE (Negative); URINE CLARITY SL CLOUDY; URINE COLOR YELLOW; URINE GLUCOSE-RANDOM* TRACE (Negative); URINE KETONES NEGATIVE (Negative); URINE LEUKOCYTES-REFLEX NEGATIVE (Negative); URINE NITRITE-REFLEX NEGATIVE (Negative); URINE PROTEIN (DIPSTICK) NEGATIVE (Negative); URINE UROBILINOGEN 0.2 E.U./dl (0.2-1.0)
[2021-06-02] VITALS (24 sets, daily range): BP systolic 76–151; BP diastolic 37–94
--- NOTE | 2021-06-02 10:50 | NUR ---
WOUND CONSULT; A SKIN FOLD SKIN BREAKDOWN RELATED TO FUNGAL CONTAMINATION TO THE LOWER BACK. THERE IS ALSO A SMALL AREA OF SKIN BREAKDOWN LIKELY RELATED TO FRICTION. THE WOUND IS TO THE INNER THIGH MEASURES 1.0 X 1.0 X 0.1 NO S/S OF AN ACUTE INFECTION. RECOMMENDATIONS; -ZGUARD TO INNER RIGHT POSTERIOR THIGH, BID -USE INTERDRY TO ALL SKIN FOLDS OF THE LOWER BACK. RN PRESENT.
--- NOTE | 2021-06-02 13:48 | NUR ---
ICU rounds: resume tube feed of osmolite 1.5 with goal rate of 45ml/hr and add 1 packet beneprotein in water flushes of 250ml every 6hr
[2021-06-02 14:13] LABS: HEMATOCRIT 24.8 % (37.0-47.0); HEMOGLOBIN 7.9 gm/dL (12.0-15.0); MCH 27.2 pg (26.0-34.0); MCHC 31.9 g/dL (28.0-37.0); MCV 85.1 fL (80.0-100.0); PLATELET COUNT 199 thou/uL (150-400); RBC 2.91 mil/uL (4.20-5.00); RDW 14.9 % (10.5-14.5); WBC 11.3 thou/uL (4.0-11.0)
[2021-06-02 14:21] LABS: CALCIUM 8.6 mg/dL (8.5-10.1); CREATININE 1.6 mg/dL (0.6-1.0); POTASSIUM 4.2 mmol/L (3.5-5.1)
--- NOTE | 2021-06-02 14:54 | NUR ---
Remains on vet, nutritional support. Covid, enhanced Isolation precaution. Eleanor with [employer] called to offer discharge planning only assist if needed can call [phone].
[2021-06-02 15:15] LABS: ABSOLUTE NEUTROPHILS 10.5 thou/uL (1.4-8.2); METAMYELOCYTES 1 %
--- NOTE | 2021-06-02 19:04 | NUR ---
SPOKE TO PT'S SISTER TWICE SHE IS NEEDING SHORT TERM DISABILITY PAPER WORK FILLED OUT BY THE DOCTOR. I UPDATED HER PER POC PT WAS HYPOTENSIVE UPON ARRIVAL THIS MORNING. NS BOLUS GIVEN AND I CALLED DR. MALLOY FOR ORDERS FOR LEVO. NS BROUGHT THE PT'S PRESSURE UP UNTIL 1829 WHEN SHE BECAME HYPOTENSIVE AGAIN AND ANOTHER NS BOLUS WAS GIVEN AND LEVO WAS STARTED, DR. MALLOY PAGED OF 1905 HE HASN'T CALLED BACK.
[2021-06-03] VITALS (63 sets, daily range): BP systolic 91–142; BP diastolic 42–69
[2021-06-03 04:16] LABS: CALCIUM 8.6 mg/dL (8.5-10.1); CREATININE 1.6 mg/dL (0.6-1.0); POTASSIUM 4.1 mmol/L (3.5-5.1)
[2021-06-03 04:17] LABS: HEMATOCRIT 24.8 % (37.0-47.0); HEMOGLOBIN 8.1 gm/dL (12.0-15.0); MCH 27.6 pg (26.0-34.0); MCHC 32.5 g/dL (28.0-37.0); RBC 2.92 mil/uL (4.20-5.00); RDW 15.5 % (10.5-14.5); WBC 11.1 thou/uL (4.0-11.0)
--- NOTE | 2021-06-03 06:44 | NUR ---
Overnight was able to wean oxygenation slightly from 90% to 80%. Patient is still requiring blood pressure support at this time. No other events overnight
[2021-06-03 17:15] LABS: BE(vivo) 4.3 mmol/L (-2 to +3); PO2 149.9 mmHg (80.0-100.0); sO2 98.6 % (92.0-98.0)
[2021-06-03 17:16] LABS: PCO2 66.6 mmHg (35.0-45.0); pH 7.299 (7.360-7.450)
[2021-06-04] VITALS (80 sets, daily range): BP systolic 108–182; BP diastolic 53–124
[2021-06-04 05:08] LABS: HEMOGLOBIN 7.9 gm/dL (12.0-15.0); MCH 28.2 pg (26.0-34.0); MCHC 32.8 g/dL (28.0-37.0); MCV 86.2 fL (80.0-100.0); RBC 2.79 mil/uL (4.20-5.00); RDW 15.6 % (10.5-14.5); WBC 6.9 thou/uL (4.0-11.0)
[2021-06-04 05:16] LABS: CALCIUM 8.4 mg/dL (8.5-10.1); CREATININE 1.3 mg/dL (0.6-1.0); POTASSIUM 4.6 mmol/L (3.5-5.1)
--- NOTE | 2021-06-04 13:14 | NUR ---
ASSUMED CARE OF PATIENT AT 0600. VENTILATOR SETTINGS WERE 16/550/.70 +10 PATIENT SATURATION ON THESE SETTINGS WAS 90%. DR MALLOY GAVE THE OK TO INITIATE APRV AND THE SETTINGS ARE PH 35 PL 10 TH 3.0 TL 1.0 70%. THIS IS GIVING HER A RATIO OF 3:1 AND A SATURATION OF 99% SHE SEEMS MORE COMFORTABLE IN THE MODE AND WE SHOULD BE ABLE TO WEAN THE O2 TODAY.
--- NOTE | 2021-06-04 16:20 | NUR ---
PATIENT'S BROTHER, JOZEF, CALLED FROM [phone] AND HE WAS UPDATED AND EDUCATED ON THE PATIENT'S CONDITION AND PLAN OF CARE.
[2021-06-04 20:32] LABS: BE(vivo) 2.5 mmol/L (-2 to +3); HCO3 28.8 mmol/L (22.0-26.0); PCO2 54.4 mmHg (35.0-45.0); PO2 185.9 mmHg (80.0-100.0); pH 7.341 (7.360-7.450); sO2 99.2 % (92.0-98.0)
[2021-06-05] VITALS (95 sets, daily range): BP systolic 105–173; BP diastolic 53–114
[2021-06-05 05:33] LABS: HEMATOCRIT 23.3 % (37.0-47.0); HEMOGLOBIN 7.7 gm/dL (12.0-15.0); MCH 28.5 pg (26.0-34.0); MCHC 32.9 g/dL (28.0-37.0); MCV 86.5 fL (80.0-100.0); RBC 2.69 mil/uL (4.20-5.00); WBC 5.5 thou/uL (4.0-11.0)
[2021-06-05 05:48] LABS: CALCIUM 8.7 mg/dL (8.5-10.1); CREATININE 1.1 mg/dL (0.6-1.0); POTASSIUM 4.3 mmol/L (3.5-5.1)
--- NOTE | 2021-06-05 13:17 | NUR ---
Per ICU rounds: restart tube feeds at 25ml/hr. Promote bowel movement with medications. Goal tube feed 45ml/hr of osmolite 1.5. Do not hold tube feed unless residuals >400ml. Keep on same tube formula for now.
--- NOTE | 2021-06-05 15:55 | NUR ---
Chart review, discussed during los with hospitalist and unit rounds with pulmonary. COVID isolation. Vent, nutritional support, bedside nurse cont. to update family as needed. Son would like updates from MD's. Passed on to MD per bedside nurse. No anticipated dc over the weekend, will cont. following as needed for dc needs.
[2021-06-06] VITALS (36 sets, daily range): BP systolic 93–167; BP diastolic 45–89
[2021-06-06 05:25] LABS: HEMATOCRIT 22.6 % (37.0-47.0); HEMOGLOBIN 7.5 gm/dL (12.0-15.0); MCH 28.5 pg (26.0-34.0); MCV 86.4 fL (80.0-100.0); RBC 2.61 mil/uL (4.20-5.00); RDW 15.6 % (10.5-14.5); WBC 4.1 thou/uL (4.0-11.0)
[2021-06-06 05:30] LABS: CALCIUM 8.6 mg/dL (8.5-10.1); CREATININE 1.1 mg/dL (0.6-1.0); POTASSIUM 3.7 mmol/L (3.5-5.1)
[2021-06-06 20:09] LABS: BE(vivo) 2.9 mmol/L (-2 to +3); HCO3 29.6 mmol/L (22.0-26.0); PCO2 57.5 mmHg (35.0-45.0); PO2 92.2 mmHg (80.0-100.0); pH 7.329 (7.360-7.450); sO2 96.4 % (92.0-98.0)
--- NOTE | 2021-06-06 20:26 | NUR ---
ASSUMMED CARE OF THIS PATIENT AT 0700 THIS AM. PATIENT IS NOT PROGRESSING BUT REMAINS STABLE. RESIDUALS DECREASED DAY PROGRESSED. GOOD DIURESIS AFTER LASIX. SISTER CALLED IN AT 1999 AND UPDATED ON HER SISTER'S STATUS. REASSURANCE GIVEN AND QUESTIONS ADDRESSED.
[2021-06-07] VITALS (48 sets, daily range): BP systolic 92–151; BP diastolic 45–84
[2021-06-07 02:40] LABS: HEMATOCRIT 23.2 % (37.0-47.0); HEMOGLOBIN 7.6 gm/dL (12.0-15.0); MCHC 32.6 g/dL (28.0-37.0); MCV 85.9 fL (80.0-100.0); RBC 2.7 mil/uL (4.20-5.00); RDW 15.6 % (10.5-14.5); WBC 4.4 thou/uL (4.0-11.0)
[2021-06-07 02:54] LABS: CALCIUM 8.7 mg/dL (8.5-10.1); POTASSIUM 3.9 mmol/L (3.5-5.1)
--- NOTE | 2021-06-07 06:27 | NUR ---
No events overnight. Patient tolerating tube feeds at this time. Unable to wean oxygen. Patient is not progressing towards goal, however, is stable at this time.
--- NOTE | 2021-06-07 20:54 | NUR ---
0700 ASSUMMED CARE FROM THE NIGHT NURSE, ADOLPH MACK. PATIENT DESATS INTO THE 80'S ETT SUCTIONED FOR LARGE AMT OF BLOOD TINGED SPUTUM AND SAT INCRESED TO THE LOWER 90'S. 1900 PATIENT RESTING QUEITLY. PATIENT IS STABLE BUT NOT PROGRESSING TOWARDS OUTCOME GOALS. PLEASE REFER TO ASSESSMENTS.
[2021-06-07 21:51] LABS: URINE BILIRUBIN NEGATIVE (Negative); URINE BLOOD 1+ (Negative); URINE CLARITY CLOUDY; URINE COLOR YELLOW; URINE GLUCOSE-RANDOM* 2+ (Negative); URINE KETONES NEGATIVE (Negative); URINE LEUKOCYTES-REFLEX NEGATIVE (Negative); URINE NITRITE-REFLEX NEGATIVE (Negative); URINE PROTEIN (DIPSTICK) NEGATIVE (Negative); URINE UROBILINOGEN 0.2 E.U./dl (0.2-1.0)
[2021-06-07 22:07] LABS: BACTERIA-REFLEX 1-9 Few /HPF (None Seen); FINE GRANULAR CASTS 0-3 Few /LPF (None Seen); HYALINE CASTS 0-3 Few /LPF (None Seen); MUCUS 0-3 Light strn/LPF (None Seen); SQUAMOUS None Seen /LPF (0-3); URIC ACID CRYSTALS 4-10 Moderate /LPF (None Seen); WBC CASTS 0-3 Few /LPF (None Seen)
[2021-06-07 22:08] LABS: AMORPHOUS URATES Few /LPF (None Seen); TRANSITIONAL EPITHEL CELL 0-3 Few /LPF (None Seen); URINE RBC 3-10 Few /HPF (NONE SEEN); URINE WBC-REFLEX 0-5 Rare /HPF (0-5)
[2021-06-08] VITALS (30 sets, daily range): BP systolic 120–163; BP diastolic 58–95
[2021-06-08 05:34] LABS: BASOPHILS 1.2 % (0.0-2.0); HEMOGLOBIN 6.8 gm/dL (12.0-15.0); WBC 3.5 thou/uL (4.0-11.0)
[2021-06-08 05:36] LABS: ABSOLUTE NEUTROPHILS 2.5 thou/uL (1.4-8.2); EOSINOPHILS 0.9 % (0.0-3.0); HEMATOCRIT 20.8 % (37.0-47.0); LYMPHOCYTES 16.8 % (24.0-44.0); MCH 27.9 pg (26.0-34.0); MCHC 32.8 g/dL (28.0-37.0); MCV 85.1 fL (80.0-100.0); MONOCYTES 10.6 % (1.0-8.0); PLATELET COUNT 158 thou/uL (150-400); POLYS 70.5 % (36.0-66.0); RBC 2.44 mil/uL (4.20-5.00); RDW 15.5 % (10.5-14.5)
[2021-06-08 05:50] LABS: ALBUMIN 2.2 g/dL (3.4-5.0); CALCIUM 8.4 mg/dL (8.5-10.1); MAGNESIUM 1.3 mg/dL (1.8-2.4); PHOSPHORUS 3.5 mg/dL (2.5-4.9); POTASSIUM 4.2 mmol/L (3.5-5.1); TOTAL BILIRUBIN 0.6 mg/dL (0.2-1.0); TOTAL PROTEIN 6.5 g/dL (6.4-8.2)
--- NOTE | 2021-06-08 10:21 | NUR ---
Attempted to call Kirk Bauman for blood consent. No answer. Will attempt again at later time. Patient has no s/s of bleeding.
--- NOTE | 2021-06-08 10:49 | NUR ---
Attempted at second call to Kirk Bauman. Also called patient's sister, Janee. No answer on either phone.
[2021-06-08 14:45] LABS: BE(vivo) 8.7 mmol/L (-2 to +3); HCO3 34.7 mmol/L (22.0-26.0); PCO2 56.7 mmHg (35.0-45.0); PO2 109.7 mmHg (80.0-100.0); pH 7.405 (7.360-7.450); sO2 97.9 % (92.0-98.0)
[2021-06-09] VITALS (26 sets, daily range): BP systolic 116–172; BP diastolic 49–96
[2021-06-09 05:37] LABS: ABSOLUTE NEUTROPHILS 3.2 thou/uL (1.4-8.2); BASOPHILS 0.9 % (0.0-2.0); EOSINOPHILS 0.9 % (0.0-3.0); HEMATOCRIT 22.3 % (37.0-47.0); HEMOGLOBIN 7.3 gm/dL (12.0-15.0); LYMPHOCYTES 16.5 % (24.0-44.0); MCHC 32.6 g/dL (28.0-37.0); MCV 85.8 fL (80.0-100.0); MONOCYTES 10.5 % (1.0-8.0); PLATELET COUNT 162 thou/uL (150-400); POLYS 71.2 % (36.0-66.0); WBC 4.5 thou/uL (4.0-11.0)
[2021-06-09 05:43] LABS: HCO3 31.7 mmol/L (22.0-26.0); PCO2 55.9 mmHg (35.0-45.0); PO2 116.2 mmHg (80.0-100.0); pH 7.371 (7.360-7.450); sO2 98.1 % (92.0-98.0)
[2021-06-09 06:09] LABS: ALBUMIN 2.2 g/dL (3.4-5.0); CALCIUM 8.4 mg/dL (8.5-10.1); CREATININE 0.9 mg/dL (0.6-1.0); POTASSIUM 3.8 mmol/L (3.5-5.1); TOTAL BILIRUBIN 0.6 mg/dL (0.2-1.0); TOTAL PROTEIN 6.3 g/dL (6.4-8.2)
--- NOTE | 2021-06-09 16:00 | NUR ---
1500-Vent changes made per Dr. Kwong. Patient had increased anxiety after vent changes, sedation titrated up. Patient tolerating better now.
--- NOTE | 2021-06-09 16:39 | NUR ---
Patient's sister, Janee, updated on patient condition. All questions answered and plan of care discussed. Also notified that patient is off of isolation and visitors are welcome. Janee plans on being here tomorrow afternoon.
[2021-06-10] VITALS (26 sets, daily range): BP systolic 117–179; BP diastolic 56–96
--- NOTE | 2021-06-10 09:27 | NUR ---
WOUND CARE F/U; THE INNER THIGH WOUND IS HEALED. WE WILL CONTINUE TO USE AG FAOM TO PROTECT THE SKIN FROM THE KERNS CATHETER. RECCOMENDATIONS; CONTINUE CURRENT TREATMENT. RN PRESENT.
[2021-06-10 10:40] LABS: BE(vivo) 13.5 mmol/L (-2 to +3); HCO3 38.5 mmol/L (22.0-26.0); PCO2 52.3 mmHg (35.0-45.0); PO2 62.8 mmHg (80.0-100.0); pH 7.485 (7.360-7.450); sO2 93.2 % (92.0-98.0)
[2021-06-10 10:45] LABS: ABSOLUTE NEUTROPHILS 3.3 thou/uL (1.4-8.2); BASOPHILS 0.6 % (0.0-2.0); EOSINOPHILS 1.6 % (0.0-3.0); HEMATOCRIT 25.6 % (37.0-47.0); HEMOGLOBIN 8.4 gm/dL (12.0-15.0); LYMPHOCYTES 7.9 % (24.0-44.0); MCH 27.9 pg (26.0-34.0); MCHC 32.6 g/dL (28.0-37.0); MCV 85.3 fL (80.0-100.0); MONOCYTES 7.2 % (1.0-8.0); PLATELET COUNT 194 thou/uL (150-400); POLYS 82.7 % (36.0-66.0); RDW 15.9 % (10.5-14.5); WBC 3.9 thou/uL (4.0-11.0)
--- NOTE | 2021-06-10 12:21 | NUR ---
Sedation turned off except for precedex for breathing trial. Patient was not able to tolerate due to low ventilation volumes. Patient's family in to see patient. Had many questions regarding plan of care and trach/PEG. Drywaller in to see patient and family. Patient tolerating current ventilator settings, AC TV 600, RR16, PEEP8, FiO2 35%.
--- NOTE | 2021-06-10 13:43 | NUR ---
SPOKE WITH PT'S INSURANCE ([employer]) CHILD PSYCHOLOGY TEACHER, HANNAH, WHO IS FOLLOWING FOR HELP WITH DC PLANNING. CONDITION UPDATED WITH PLAN FOR CONTINUED AGGRESSIVE CARE, TRACH AND PEG PLACEMENT THIS WEEK, AND EVENTUAL LTACH TRANSITION PENDING MEDICAL READINESS AND INSURANCE AUTH. HANNAH CONFIRMS IN NETWORK LTACH CHOICES [facility]RE [facility] AND [facility]. UPDATED ICU CM WHO WILL FOLLOW FOR DC PLANNING. EL
[2021-06-11] VITALS (30 sets, daily range): BP systolic 124–188; BP diastolic 59–96
[2021-06-11 04:19] LABS: BE(vivo) 12.6 mmol/L (-2 to +3); HCO3 37.8 mmol/L (22.0-26.0); PO2 67.4 mmHg (80.0-100.0); pH 7.479 (7.360-7.450); sO2 94.3 % (92.0-98.0)
[2021-06-11 05:26] LABS: ALBUMIN 2.4 g/dL (3.4-5.0); CALCIUM 8.7 mg/dL (8.5-10.1); CREATININE 0.8 mg/dL (0.6-1.0); POTASSIUM 3.4 mmol/L (3.5-5.1); TOTAL BILIRUBIN 0.6 mg/dL (0.2-1.0); TOTAL PROTEIN 6.3 g/dL (6.4-8.2)
[2021-06-11 05:29] LABS: HEMATOCRIT 22.8 % (37.0-47.0); HEMOGLOBIN 7.7 gm/dL (12.0-15.0); MCV 85.3 fL (80.0-100.0); PLATELET COUNT 164 thou/uL (150-400); RBC 2.67 mil/uL (4.20-5.00); RDW 15.9 % (10.5-14.5); WBC 2.8 thou/uL (4.0-11.0)
[2021-06-11 07:06] LABS: ABSOLUTE NEUTROPHILS 1.9 thou/uL (1.4-8.2)
[2021-06-11 07:07] LABS: ANISOCYTOSIS 1+
--- NOTE | 2021-06-11 12:15 | NUR ---
Janee patient sister and brother rocky called to talk about dpoa, cm education on medical only and if she is off sedation and can communicated or write on board could do dpoa there for them if wilfred wants. MD need to talk with wilfred sibling r/t possible trach and peg tomorrow? Cm left dpoa booklet with bedside nurse and to have MD call family if going to have procedure tomorrow and have medical questions. Will cont follow as needed for dc needs.
[2021-06-11 16:49] LABS: MAGNESIUM 1.5 mg/dL (1.8-2.4); POTASSIUM 3.7 mmol/L (3.5-5.1)
--- NOTE | 2021-06-11 19:35 | NUR ---
Patient copperative and restless. She is progressing towards plan of care as evidenced by decrease ventilator support needs. She follows commands, however intermittently when release and reapply for restraints performed, she attempts to pull tube. Nurse provided frequent re-education throughout the day. Plan for trach and peg tomorrow per physician report. Order for NPO after midnight. Family expressed they did not know this plan. Risks and benefits explained to them and nurse expressed the Physician would call them prior to the proceedure as consent can not be signed prior to that. Family expressed they understood.
[2021-06-12] VITALS (24 sets, daily range): BP systolic 126–175; BP diastolic 58–88
[2021-06-12 02:25] LABS: HEMATOCRIT 24.1 % (37.0-47.0); HEMOGLOBIN 8.2 gm/dL (12.0-15.0); MCH 28.7 pg (26.0-34.0); MCHC 33.9 g/dL (28.0-37.0); MCV 84.5 fL (80.0-100.0); RBC 2.85 mil/uL (4.20-5.00); RDW 15.6 % (10.5-14.5); WBC 2.1 thou/uL (4.0-11.0)
[2021-06-12 02:32] LABS: CREATININE 0.8 mg/dL (0.6-1.0); POTASSIUM 3.4 mmol/L (3.5-5.1)
--- NOTE | 2021-06-12 04:33 | NUR ---
This RN bladder scanned patient and got 950 as the highest residual. Continued to adjust chaney catheter, chunk of sediment forced out. Bladder drained. Will continue to monitor.
--- NOTE | 2021-06-12 09:12 | NUR ---
Per Dr. Hastings patient is not currently good candidate for trach and PEG per her anatomy. Will initiate sedation vacation and later try CPAP trial. If pt unable to complete CPAP trial, will consult ENT for surgical airway in future.
--- NOTE | 2021-06-12 09:33 | NUR ---
WOUND CARE F/U; THE WOUNDS ARE HEALED. NO OTHER AREAS OF CONCERN REPORTED. RECOMMENDATIONS; -CONTINUE ZGUARD. -D/C WOUND CONSULT RECONSULT IF NEEDED. RN PRESENT.
--- NOTE | 2021-06-12 10:18 | NUR ---
Spoke on phone with pt brother about trach/PEG and plan of care. Explained to brother, Fidel, that trach is unable to happen today per general surgery and the plan is to CPAP trial her in attempts to extubate. Discussed general senior care plan i.e. PT/OT rehab, ENT placing trach. Fidel very understanding and supportive and discussed pt potentially needing to quit work as she "could have permanent lung damage from all of this". Stated mom or sister of patient could potentially visit later and would check in for updates.
[2021-06-12 12:55] LABS: HCO3 40.5 mmol/L (22.0-26.0); PCO2 49.1 mmHg (35.0-45.0); PO2 61.2 mmHg (80.0-100.0); pH 7.534 (7.360-7.450); sO2 93.5 % (92.0-98.0)
--- NOTE | 2021-06-12 13:27 | NUR ---
Pt unable to successfully complete CPAP trial, ABG unsatisfactory/not ready for extubation. Per RT, aware. Will consult ENT.
--- NOTE | 2021-06-12 14:17 | NUR ---
Sister at bedside asking about overall status and plan for the week. RN updated on all plans for consulting ENT etc for trach. Sister showing home videos to pt and talking about family, left to allow pt mother time to visit.
[2021-06-13] VITALS (25 sets, daily range): BP systolic 143–198; BP diastolic 64–89
--- NOTE | 2021-06-13 10:18 | NUR ---
Per Dr. Gonsalves with ENT he can operate on patient early next week. He requires a negative COVID swab before surgery. RN to update Dr. Kwong.
--- NOTE | 2021-06-13 12:00 | NUR ---
Pt mother at bedside talking with patient about progress and plan to place a trach. Pt seems depressed today, not wanting to open eyes, rarely responding to verbal commands.
--- NOTE | 2021-06-13 15:31 | NUR ---
Per attending in AM review of case: Per ENT plan for trach early next week. Pulmonology review notes diffuse Bilateral infiltrates. Will attempt wean trial today as ENT saw earlier for possible trach early next week. Noted CM conversation with sister and brother and continuation as no DPOA can be completed while there is sedation in use and patients can communicate verbally or in written format their desire for a person to be deemed as the patient's power of immigration attorney. Attempted to reach sister Janee Gee at [phone] and Brother Fidel at [phone] without success. Noted that patient has lived independent at home and works in a daycare center prior to admission. All levels of care needed to be clearly delineated after planned procedure and evaluations as deemed required by MD team.
[2021-06-14] VITALS (24 sets, daily range): BP systolic 125–182; BP diastolic 50–91
--- NOTE | 2021-06-14 06:41 | NUR ---
Patient progress towards outcomegoals slow. Oxygenation optimal with current vent settings. Febrile, Dr Lloyd made aware during rounds with orders for blood culture, sputum culture and UA. Tolerating tube feeding. Fecal management intact.
[2021-06-14 07:23] LABS: URINE BILIRUBIN NEGATIVE (Negative); URINE BLOOD TRACE (Negative); URINE CLARITY CLEAR; URINE COLOR YELLOW; URINE GLUCOSE-RANDOM* 1+ (Negative); URINE KETONES NEGATIVE (Negative); URINE LEUKOCYTES-REFLEX NEGATIVE (Negative); URINE NITRITE-REFLEX NEGATIVE (Negative); URINE PROTEIN (DIPSTICK) NEGATIVE (Negative)
--- NOTE | 2021-06-14 09:22 | NUR ---
Began CPAP trial at 0815 - pt much more awake and participatory today. Has fever but denies pain. Tolerating CPAP trial well so far.
--- NOTE | 2021-06-14 09:36 | NUR ---
Pt tolerating CPAP well - ABG taken. Per RT patient completed a NIF test with -48. Calmly watching TV and answering all questions appropriately.
[2021-06-14 09:40] LABS: BE(vivo) 12.6 mmol/L (-2 to +3); HCO3 36.1 mmol/L (22.0-26.0); PCO2 41.8 mmHg (35.0-45.0); PO2 86.6 mmHg (80.0-100.0); pH 7.554 (7.360-7.450); sO2 97.5 % (92.0-98.0)
--- NOTE | 2021-06-14 11:46 | NUR ---
Sister arrived at bedside around 1100, talking with patient very happy about how awake she is. Pt nodding yes and no to sister's questions. Mom on speakerphone excited with pt progress.
[2021-06-15] VITALS (25 sets, daily range): BP systolic 126–172; BP diastolic 68–88
--- NOTE | 2021-06-15 07:00 | NUR ---
PATIENT REMAINS ON PRECEDEX 0.4 MCG/KG/HR. ABLE TO WAKE AND FOLLOW COMMANDS. PLAN TO CPAP TODAY. IF UNABLE TO EXTUBE PT NEEDS CONSENT FOR ENT TO PLACE A TRACH ON Wednesday06/17/21. PATIENT NEEDS LOVENOX HELD TONIGHT AND FOR 36 HOURS PRIOR TO TRACH. PLACEMENT. REMAINS ON 35% FIO2 PER VENT.
--- NOTE | 2021-06-15 08:45 | HC ---
[facility] [place] [address] CONSULTATION Name: DEBORAH COLBERT Room #: 246-P ADM IN M.R.#: [id number] Admission: 05/20/21 Attend Phys: Charisma Ashby MD Discharge: Date of : 70 Report #: [id number] THIS REPORT FOR: cc: FAM - No family physician/PCP FAM - No family physician/PCP Garret Gonsalves MD ~ cc: Rishi Flood MD, Yvan Kwong MD, Tito Samayoa MD DATE OF SERVICE: 06/14/2021 REASON FOR CONSULTATION: Need for tracheotomy. HISTORY OF PRESENT ILLNESS: The patient is a 50-year-old morbidly obese female admitted on 05/20/2021 via the Emergency Department for COVID positivity, weakness, and hypoxia. The patient was admitted to the intensive care unit. She had been attempted to wean, had been on BiPAP, then reintubated and the patient has been unable to come off of the mechanical ventilator. General Surgery has been consulted, but due to the patient's morbid obesity, they declined the tracheotomy and therefore, I was consulted. Our Academy of Otolaryngology has published recommendations for tracheotomy post-COVID. Recommendations are that they have been intubated 3 weeks and failed weaning trials in addition that the patient is COVID negative by swab and test. I have talked with her nurse. We will obtain a COVID test on Wednesday. I will work with the Emergency Room to see when this can be done next week. Because of the patient's morbid obesity, this will need to be done in the operating room. PAST MEDICAL HISTORY: Significant for morbid obesity, hypertension, diabetes mellitus with hyperglycemia, poorly controlled. Rhabdomyolysis, resolved. Hypernatremia, recent SARS-CoV-2 infection around 05/18/2021. Persistent hypoxemic respiratory failure with acute respiratory distress syndrome. MEDICATIONS: Reviewed on her electronic MAR. SOCIAL HISTORY: The patient does have a supportive family. She is a nonsmoker, does not use alcohol. REVIEW OF SYSTEMS: Cannot be obtained as she is intubated. The chart was reviewed. PHYSICAL EXAMINATION: Morbidly obese female seen in intensive care unit with her nurse. 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 Oral cavity exam is limited by endotracheal tube placement. ASSESSMENT AND PLAN: Morbidly obese 220-kilo 50-year-old female with hypoxemic respiratory failure and acute respiratory distress syndrome ongoing with request [place] [id number] CONSULTATION Name: DEBORAH COLBERT Room #: 246-P [facility] IN .R.#: [id number] Admission: 05/20/21 Attend Phys: Charisma Ashby MD Discharge: Date of : 70 Report #: [id number] for tracheotomy by her care team. The patient's family is not available today, but I have discussed with the nurse our criteria for tracheotomy, recommends that the patient be ventilated 2-3 weeks with failed weaning trial and that the patient have a negative COVID test prior to the tracheotomy. I will obtain that on Wednesday. I have talked with her nurse about this. The tracheotomy is more dangerous and fraught with more comorbidity secondary to her morbid obesity. This is best done in the operating room with creation of a tracheostome for safety and panniculectomy. I have discussed this with the patient's nurse. I will ask her to have the family available next week, so that I could speak with them to discuss the planned procedure, indications, alternatives, benefits, and potential risks. <ELECTRONICALLY SIGNED> By: Garret Gonsalves MD 06/15/21 0845 [id number] Garret Gonsalves MD /nt
[2021-06-15 09:04] LABS: HEMATOCRIT 26.4 % (37.0-47.0); HEMOGLOBIN 8.5 gm/dL (12.0-15.0); MCH 27.6 pg (26.0-34.0); MCHC 32.3 g/dL (28.0-37.0); MCV 85.4 fL (80.0-100.0); PLATELET COUNT 220 thou/uL (150-400); RBC 3.09 mil/uL (4.20-5.00); RDW 15.9 % (10.5-14.5)
[2021-06-15 09:28] LABS: ALBUMIN 2.3 g/dL (3.4-5.0); CALCIUM 9.3 mg/dL (8.5-10.1); CREATININE 1.1 mg/dL (0.6-1.0); POTASSIUM 3.3 mmol/L (3.5-5.1); TOTAL BILIRUBIN 0.8 mg/dL (0.2-1.0); TOTAL PROTEIN 6.8 g/dL (6.4-8.2)
[2021-06-15 12:30] LABS: ATYPICAL LYMPHS 2 %
[2021-06-15 12:31] LABS: ANISOCYTOSIS 1+
[2021-06-15 12:34] LABS: WBC 0.9 thou/uL (4.0-11.0)
--- NOTE | 2021-06-15 16:50 | NUR ---
PATIENT PROGRESSING TOWARDS THE PLAN OF CARE EVIDENCED BY INCREASED TIME TOLERATING CPAP TRIAL. SPOKE WITH PATIENT'S SISTER, CYNDI FROM [phone] OVER THE PHONE AND WAS UPDATED AND EDUCATED ON THE PATIENT'S CONDITION AND PLAN OF CARE.
--- NOTE | 2021-06-15 19:55 | NUR ---
1944 - RT SWITCHED PT FROM CPAP BACK TO A/C VENT SETTINGS. SPO2 >92% ON 35% FIO2. PT TOLERATED CPAP WELL THIS EVENING, WITHOUT ANY RESPIRATORY DISTRESS. NO SIGNIFICANT CHANGE IN VITAL SIGNS.
[2021-06-16] VITALS (25 sets, daily range): BP systolic 118–159; BP diastolic 57–76
--- NOTE | 2021-06-16 07:19 | NUR ---
NO SIGNIFICANT EVENTS DURING THE NIGHT. PT REMAINS INTUBATED AND ON THE VENT WITH 35% FIO2. SHE ATTEMPTS TO MOUTH WORDS BUT OFTEN GETS FRUSTRATED TRYING TO COMMUNICATE. BILATERAL WRIST RESTRAINTS REMAIN IN PLACE TO PREVENT PT FROM EXTUBATING HERSELF. WHEN RESTRAINTS WERE LOOSE, PT DID ATTEMPT TO PULL ON SUCTION CATHETER. PRN VERSED GIVEN ONCE DURING THE NIGHT FOR RESTLESSNESS/AGITATION. PRN HYDRALAZINE GIVEN ONCE FOR HTN. BP IMPROVED. TF VIA OGT; TOLERATING WELL. PROGRESSING SLOWLY TOWARD POC GOALS. REPORT GIVEN TO ONCOMING NURSE.
[2021-06-16 10:17] LABS: CALCIUM 9.4 mg/dL (8.5-10.1); MAGNESIUM 1.6 mg/dL (1.8-2.4); POTASSIUM 3.3 mmol/L (3.5-5.1)
--- NOTE | 2021-06-16 11:25 | NUR ---
Discussed during los and unite rounds, Vent, nutritional support. CPAP trial, possible will need trach and peg if unable to be extubated. ENT will do trach on sunday 06/17, if unable to be weaned off vent.
[2021-06-16 12:16] LABS: HEMATOCRIT 27.7 % (37.0-47.0); HEMOGLOBIN 8.9 gm/dL (12.0-15.0); MCH 27.3 pg (26.0-34.0); RBC 3.24 mil/uL (4.20-5.00)
[2021-06-16 12:17] LABS: MCV 85.4 fL (80.0-100.0); PLATELET COUNT 282 thou/uL (150-400); RDW 15.5 % (10.5-14.5)
[2021-06-16 12:26] LABS: WBC 1.2 thou/uL (4.0-11.0)
[2021-06-16 13:16] LABS: BE(vivo) 11.5 mmol/L (-2 to +3); HCO3 35.6 mmol/L (22.0-26.0); PCO2 44.9 mmHg (35.0-45.0); PO2 87.6 mmHg (80.0-100.0); pH 7.517 (7.360-7.450); sO2 97.3 % (92.0-98.0)
[2021-06-16 13:35] LABS: ABSOLUTE NEUTROPHILS 0.1 thou/uL (1.4-8.2)
[2021-06-16 13:36] LABS: PLATELET ESTIMATE NORMAL
--- NOTE | 2021-06-16 18:52 | NUR ---
PT EXTUBATED TODAY PROGRESSING TOWARDS DISCHARGE, WAS WORKING WITH RT DR.KO KEEGAN TO COORDINATE CARE FOR THE PATIENT, AFTER CPAP/ABG/AIRLEAKTEST/NIF, PATIENT WAS ABLE TO BE EXTUBATED, TIME OF EXTUBATION @1750. PT PLACED ON FACE MASK THEN HIGH FLOW, CURRENTLY AT 10L OF HIGH FLOW NASAL CANULA. PT WAS SEEN BY REGARDING NEUTROPENIA, CONTINUING TO MONITOR. POTASSIUM LEVEL LOW THIS MORNING, MAGNESIUM LEVEL LOW. BOTH REPLACED, SECOND BAG OF K RUNNING RIGHT NOW. WILL TALK TO NOC RN ABOUT RECHECK. PT'S SKIN COLOR IS PINK, IS INSTRUCTED TO REST FOR THIS SHIFT. CURRENTLY HOLDING OXYGEN SAT, TACHYCARDIC. MAY CONSIDER RESTARTING PRECEDEX BREIFLY TO ASSIST DURING THIS TRANSITION
--- NOTE | 2021-06-16 19:02 | NUR ---
PT EXTUBATED TODAY AT 1750, RESTRAINTS REMOVED AT THAT TIME WELL. PT DID NOT TOLERATE FACE MASK OXYGEN, HAD ANXIETY. PT WAS PLACED ON NC AT 10LPM HUMIDIFIED O2, PT TOLERATING WELL AND HAS OXYGEN SATURATION IN MID 90S AT THIS TIME. PT IN GOOD SPIRITS, FAMILY AT BEDSIDE TODAY. POTASSIUM IS BEING REPLACED DUE TO LOW K+ VALUES. WILL CONTINUE TO FOLLOW POC, MONITORING OXYGENATION, AND LAB VALUES.
--- NOTE | 2021-06-16 20:29 | NUR ---
1932 - DR. VILLANUEVA CALLED TO GET AN UPDATE ON PTS STATUS. INFORMED HER THAT PT WAS EXTUBATED, SATING 95% ON 10L NC. PT ANXIOUS AND CONFUSED, BUT NO OTHER COMPLAINTS AT THIS TIME. PER RICH WILL ORDER A SPEECH CONSULT FOR TOMORROW AND HOLD ALL PO PILLS UNTIL THEN.
[2021-06-17] VITALS (22 sets, daily range): BP systolic 113–158; BP diastolic 60–87
[2021-06-17 00:03] LABS: MAGNESIUM 1.9 mg/dL (1.8-2.4); POTASSIUM 3.8 mmol/L (3.5-5.1)
--- NOTE | 2021-06-17 08:34 | NUR ---
Noted she is current on oxygen per nasal cannula, will cont. following as needed for dc needs.
--- NOTE | 2021-06-17 18:34 | NUR ---
Patient is progressing towards goal. Orders to transfer out of ICU, on 6L NC. worked with physical therapy today and sat on edge of bed. Speech clear patient for medications with applesauce. Mom, brothers, and sisters were at bedside most of the day. All questions and concerns were addressed.
--- NOTE | 2021-06-17 21:48 | NUR ---
REPORT GIVEN TO MARTINA BLOUNT ON 2N, PT WILL BE IN ROOM 210. SISTER (CYNDI) CALLED AND NOTIFIED OF THE NEW ROOM NUMBER. ALL QUESTIONS ANSWERED AT THAT TIME.
--- NOTE | 2021-06-18 03:39 | NUR ---
PT IS A/O X2 AND IS FORGETFUL AT TIMES. RECEIVED PT THIS NOC FROM ICU. PT IS PLEASANT AND COOPERATIVE. VOICE IS HORSE AND LUNGS SOUND COARSE WITH A NON PRODUCTIVE COUGH. PT VOICES CONCERNS OF HER MEMORY AND NOT REMEMBERING BASIC QUESTIONS. THE NIGHT PROGRESSED SHE HAS BEEN ABLE TO REMEMBER MORE ORIENTATION QUESTIONS THAN WHEN SHE FIRST ARRIVED TO THIS UNIT. MOUTH SWABS PROVIDED NEEDED FOR MOUTH CARE. REMAINS NPO AWAITING ST TO ADDRESS ASPIRATION CONCERNS. NO PO MEDICATIONS GIVEN THIS NOC. IV ABX GIVEN DIRECTED. KERNS IN PLACE DRAINING APPROPRIATELY. FECAL MANAGEMENT IN PLACE AND DRAINING APPROPRIATELY. REDNESS NOTED IN GROIN AREA AND BOTTOM. SR ON THE MONITOR. PT DENIES C/O PAIN OR DISCOMFORT. FALL PRECAUTIONS IN PLACE, CALL LIGHT IS WITHIN REACH. PT HAS CALLED OUT APPROPRIATELY FOR ASSISTANCE THIS NOC.
[2021-06-18 03:42] LABS: HEMOGLOBIN 8.9 gm/dL (12.0-15.0); MCHC 32.3 g/dL (28.0-37.0)
[2021-06-18 03:44] LABS: HEMATOCRIT 27.7 % (37.0-47.0); MCH 27.7 pg (26.0-34.0); MCV 85.9 fL (80.0-100.0); RBC 3.22 mil/uL (4.20-5.00); RDW 16.3 % (10.5-14.5)
[2021-06-18 04:47] LABS: PLATELET COUNT 365 thou/uL (150-400)
[2021-06-18 08:21] LABS: CALCIUM 9.3 mg/dL (8.5-10.1); CREATININE 0.9 mg/dL (0.6-1.0); MAGNESIUM 1.7 mg/dL (1.8-2.4); POTASSIUM 3.7 mmol/L (3.5-5.1)
[2021-06-18 08:57] LABS: ATYPICAL LYMPHS 1 %; METAMYELOCYTES 6 %; MYELOCYTES 14 %; NUCLEATED RBCS 1 /100WBC
[2021-06-18 09:00] VITALS: BP 133/65
[2021-06-18 09:01] LABS: ANISOCYTOSIS 1+
[2021-06-18 11:00] VITALS: BP 133/81
[2021-06-18 15:00] VITALS: BP 130/82
--- NOTE | 2021-06-18 16:16 | NUR ---
PT RESTED IN BED AND WORKED WITH PT/OT. CONTINUE Q2 HOUR TURNING VIA SPECIALTY BED. ST INSTRUCTD TO KEEP PT NPO. WILL CONTINUE TO ASSESS.
--- NOTE | 2021-06-18 17:11 | NUR ---
Patient transferred to CCU from ICU last evening. Covid positive out of isolation. Extabated and now with ST eval for intake. [facility] eval. Brother and sister supportive.
--- NOTE | 2021-06-18 18:40 | NUR ---
PT RESTED IN BED COMPLETING Q 2 HOURS TURNS [facility] SPECIALTY BED. COMPLETED ORAL CARE AND ALLOWED MOUTH SWABS. SPEECH TO REEVALUATE IN AM TO START DIET. UPDATE FAMILY AT BEDSIDE. WILL CONTINUE TO ASSESS.
[2021-06-18 19:08] VITALS: BP 142/79
[2021-06-19 03:33] VITALS: BP 125/68
[2021-06-19 05:41] LABS: MCH 27.2 pg (26.0-34.0); MCHC 32.1 g/dL (28.0-37.0); MCV 84.9 fL (80.0-100.0); RBC 3.3 mil/uL (4.20-5.00); WBC 11.5 thou/uL (4.0-11.0)
[2021-06-19 06:22] LABS: CALCIUM 9.4 mg/dL (8.5-10.1); CREATININE 0.8 mg/dL (0.6-1.0); MAGNESIUM 1.5 mg/dL (1.8-2.4)
[2021-06-19 06:27] LABS: POTASSIUM 2.9 mmol/L (3.5-5.1)
[2021-06-19 07:26] VITALS: BP 121/71
--- NOTE | 2021-06-19 15:19 | NUR ---
[facility] has evaluated pt and can accept once pt able to tolerate more therapy and ins auth in place. Pt will need to have fecal mngt tube dc'd. She is now down to 6liters today and ST is working with her as well.
[2021-06-19 16:00] VITALS: BP 137/79
[2021-06-19 20:30] VITALS: BP 136/77
[2021-06-20 00:21] VITALS: BP 141/77
--- NOTE | 2021-06-20 03:51 | NUR ---
assumed pt care at 1900, pt is awake, alert and orientedx4, hoarse voice d/t intubation, tolerated dinner well, ate 100%, on 5l nc, o2sats stable, denies pain or sob, magnesium replaced, recheck today, meds given as per dec, no needs at this time, will continue to monitorl [facility] following for discharge
[2021-06-20 05:16] LABS: HEMOGLOBIN 9.4 gm/dL (12.0-15.0); MCH 27.6 pg (26.0-34.0); MCHC 32.6 g/dL (28.0-37.0); MCV 84.8 fL (80.0-100.0); RBC 3.42 mil/uL (4.20-5.00); RDW 16.2 % (10.5-14.5); WBC 17.1 thou/uL (4.0-11.0)
[2021-06-20 05:37] LABS: CALCIUM 9.2 mg/dL (8.5-10.1); CREATININE 0.7 mg/dL (0.6-1.0)
[2021-06-20 05:58] VITALS: BP 144/83
[2021-06-20 06:02] LABS: POTASSIUM 2.9 mmol/L (3.5-5.1)
[2021-06-20 07:40] VITALS: BP 150/84
[2021-06-20 11:40] VITALS: BP 137/76
--- NOTE | 2021-06-20 11:56 | NUR ---
Case discussed with the care team. Fecal mngt system being dc'd today. [facility] is submiting for ins auth and can accept once approved.
[2021-06-20 15:40] VITALS: BP 157/77
--- NOTE | 2021-06-20 16:55 | NUR ---
SUBMITTED FOR INSURANCE AUTHORIZATION FOR ACUTE INPATIENT REHAB ADMISSION ON 06/20/21. SUBMITTING AUTHORIZATION FOR ADMISSION TO REHAB ON 06/23/21. REFERENCE #[id number].
[2021-06-20 19:49] VITALS: BP 144/66
[2021-06-21 04:30] VITALS: BP 152/72
--- NOTE | 2021-06-21 04:42 | NUR ---
ASSUMED PT CARE AT CHANGE OF SHIFT ALERT AND ORIENTED, DENIES PAIN OR SOB, SR ON TELE, ASSESSMENTS CHARTED, VSS, BS STABLE, NO NEEDS AT THIS TIME, WILL CONTINUE TO MONITOR; PLAN FOR DISCHARGE TO [facility]
[2021-06-21 05:46] LABS: HEMATOCRIT 31.4 % (37.0-47.0); HEMOGLOBIN 9.7 gm/dL (12.0-15.0); MCH 26.6 pg (26.0-34.0); MCV 85.6 fL (80.0-100.0); RBC 3.67 mil/uL (4.20-5.00); RDW 16.3 % (10.5-14.5); WBC 16.9 thou/uL (4.0-11.0)
[2021-06-21 05:48] LABS: CALCIUM 9.3 mg/dL (8.5-10.1); CREATININE 0.8 mg/dL (0.6-1.0); MAGNESIUM 1.6 mg/dL (1.8-2.4); POTASSIUM 3.1 mmol/L (3.5-5.1)
[2021-06-21 07:14] VITALS: BP 137/61
[2021-06-21 10:50] VITALS: BP 141/56
--- NOTE | 2021-06-21 13:29 | NUR ---
TOOK OVER CARE FOR THIS PATIENT AT 0700. PATIENT REPORTED INCREASED ANXIETY AT THIS TIME. PATIENT STATED SHE HAS A HISTORY OF ANXIETY BUT HAS NEVER TAKEN MEDICATION FOR IT. ENCOURAGED PATIENT TO EXPRESS HER FEELINGS AND USE NONTHERAPEUTIC COPING MECHANISMS. PATIENTS SISTER, MINDA, CAME TO VISIT THIS AFTERNOON. PATIENT RESTING COMFORTABLY IN BED AT THIS TIME. DENIES ANY NEEDS. FALL PRECAUTIONS IN PLACE AND CALL LIGHT WITHIN REACH.
[2021-06-21 15:40] VITALS: BP 139/89
[2021-06-21 19:53] VITALS: BP 133/71
[2021-06-22 04:39] VITALS: BP 128/80
[2021-06-22 06:11] LABS: HEMATOCRIT 31.2 % (37.0-47.0); HEMOGLOBIN 10.1 gm/dL (12.0-15.0); MCH 27.8 pg (26.0-34.0); MCHC 32.5 g/dL (28.0-37.0); MCV 85.7 fL (80.0-100.0); RBC 3.64 mil/uL (4.20-5.00); RDW 16.2 % (10.5-14.5); WBC 14.6 thou/uL (4.0-11.0)
[2021-06-22 06:50] LABS: CALCIUM 9.7 mg/dL (8.5-10.1); CREATININE 0.8 mg/dL (0.6-1.0); MAGNESIUM 1.9 mg/dL (1.8-2.4); POTASSIUM 3.1 mmol/L (3.5-5.1)
[2021-06-22 07:00] VITALS: BP 146/85
[2021-06-22 12:09] VITALS: BP 145/75
[2021-06-22 16:07] VITALS: BP 141/74
--- NOTE | 2021-06-22 18:48 | NUR ---
PATIENT ALERT AND ORIENTED X4. PATIENT IS RESTING COMFORTABLY AND IS PLEASANT. PT FAMILY MEMBER CAME TO VISIT TODAY. OBSERVED PT COUGHING VIGOROUSLY WITH ABILITY TO COUGH UP PHLEGM. PT CALL LIGHT WITHIN REACH AND FALL RISK PRECAUTIONS IN PLACE. TURNED FREQUENTLY. PT DENIES NEEDS AT THIS TIME. WILL CONTINUE TO MONITOR.
[2021-06-22 19:46] VITALS: BP 139/74
--- NOTE | 2021-06-23 04:42 | NUR ---
assumed pt care at 1900, awake, alert and oriented, sr/st on tele, denies pain or soa, remains on 3l nc, o2sats stable, meds given as per dec, low k+ replaced, will recheck, xanax givenx1 for anxiety, no needs at this time, progressing well towards discharge
[2021-06-23 04:53] VITALS: BP 154/74
[2021-06-23 07:20] VITALS: BP 148/78
[2021-06-23 09:30] LABS: CALCIUM 9.6 mg/dL (8.5-10.1); CREATININE 0.7 mg/dL (0.6-1.0); POTASSIUM 3.7 mmol/L (3.5-5.1)
[2021-06-23 11:00] VITALS: BP 134/87
[2021-06-23 15:10] VITALS: BP 128/69
--- NOTE | 2021-06-23 16:01 | NUR ---
Patient has auth for acute rehab. Notified patient. called sister. Reviewed [facility] rehab unit, team conference. etc. Sister wants to sp with nurse midwife. She is concerned with patients weight as barrier in her life. Affecting, her heart, her blood pressure. Updated liason for rehab consult.
[2021-06-23] MEDS ORDERED: LEVOFLOXACIN750 MG PO (16:32)
[2021-06-23] MEDS ORDERED: TOPROL XL50 MG PO (16:32)
--- NOTE | 2021-06-24 11:04 | HC ---
[facility] [place] [address] CONSULTATION Name: DEBORAH COLBERT Room #: 210-[facility] IN M.R.#: [id number] Admission: 05/20/21 Attend Phys: Charisma Ashby MD Discharge: 06/23/21 Date of : 70 Report #: [id number] THIS REPORT FOR: cc: FAM - No family physician/PCP FAM - No family physician/PCP Nazario Gomez MD ~ DATE OF SERVICE: 06/18/2021 HISTORY OF PRESENT ILLNESS: A 50-year-old white female admitted to [facility] on 05/20/2021 with mental status changes, respiratory failure, COVID positive. She developed severe respiratory failure secondary pneumonitis and was intubated on 05/21/2021. There was a plan to trach and PEG her, but she was able to be extubated on 06/17/2021 after approximately a month and did not need to undergo trach and PEG. Her course was complicated by rhabdomyolysis. She had renal insufficiency that has resolved. She has elevated liver function tests, noted to have ARDS with multiorgan involvement. She also developed neutropenia secondary to erythromycin per Hematology. She is noted to have encephalopathy and has considerable weakness and we are seeing her in rehabilitation medicine consultation. PAST MEDICAL HISTORY: Includes hypertension, morbid obesity. Last recorded weight as 451 pounds, noted to be 5 feet 6 inches. She has a history of elevated lipids. MEDICATIONS: Please see the full medication listing. ALLERGIES: No known drug allergies. SOCIAL HISTORY: Lives in a house alone. No stairs, used a roller walker per report. She has several brothers and sisters that are involved. She was premorbidly working at a daycare. REVIEW OF SYSTEMS: Did not offer any current complaints of chest pain, shortness of breath or abdominal discomfort. PHYSICAL EXAMINATION: GENERAL: A 50-year-old white female, morbidly obese, in no obvious distress. She is currently on 5 liters nasal cannula. NEUROLOGIC: She can follow basic 1-step commands. There is a latency to her responses. Facies appeared symmetric. Appears to have significant proximal upper extremity weakness. She could not raise either arm up over her head. I would grade her proximal strength to only a grade 2+ to -3. Distally and elbows, wrists and hands she was better at probably a grade 4- to 3+. In the lower extremities she did a little better. I would grade her at a 3+ to 4-. No focal calf swelling. Sensation appeared reasonably intact to proprioception in the right large toe. Functionally, she has been max assist sit to supine. She [address] [address] CONSULTATION Name: DEBORAH COLBERT Room #: [address] [place] [address] IN M.R.#: [id number] Admission: 05/20/21 Attend Phys: Charisma Ashby MD Discharge: 06/23/21 Date of : 70 Report #: [id number] is set at the edge of the bed for 7 minutes. Bed mobility is max assist x2. She is currently n.p.o. as per speech. She still has a fecal management tube in place and has a Mohr catheter. ASSESSMENT: A 50-year-old white female with the following problem list: 1. Critical illness myopathy. She appears to have a proximal myopathy more involving her upper extremities and lower extremities. 2. Respiratory failure with acute respiratory distress syndrome and prolonged ICU stay with almost a month being on the mechanical ventilator. 3. Toxic metabolic encephalopathy. 4. Dysphagia, currently n.p.o. 5. COVID positive. 6. Rhabdomyolysis. 7. Renal insufficiency, which has resolved. 8. Elevated liver function tests. 9. Neutropenia secondary to erythromycin, per report. 10. Morbid obesity. 11. Diabetes mellitus type 2. 12. Hypertension. PLAN: We are working with her on gradually improving her strength, functional mobility and ADLs as well as swallowing issues. She certainly may warrant an acute in-hospital inpatient rehabilitation stay on our inpatient rehabilitation perez as she further medically stabilizes. We will be glad to follow along with you regarding her rehab therapy progress. <ELECTRONICALLY SIGNED> By: Nazario Gomez MD 06/24/21 [id number] Nazario Gomez MD /nt
== END 2021-06-23 20:18 | DRG 870 ==
LOC: ER 19:05 → ICU 21:03 → EROBS 21:03 → ICU 23:50 → 2N 06-17 22:18
PROVIDERS: Anesthesiology; Hospitalist; Internal Medicine; Internal Medicine Hematology & Oncology; Internal Medicine Pulmonary Disease; Nurse Practitioner; Nurse Practitioner Family; Pediatrics; Specialist; ADMIT Internal Medicine; ATTEND Internal Medicine
PROC: 5A1955Z Respiratory Ventilation, Greater than 96 Consecutive Hours (ICD-10-PCS; principal; 2021-05-20)
PROC: XW033E5 Introduction of Remdesivir Anti-infective into Peripheral Vein, Percutaneous Approach, New Technology Group 5 (ICD-10-PCS; 2021-05-20)
PROC: 0BH17EZ Insertion of Endotracheal Airway into Trachea, Via Natural or Artificial Opening (ICD-10-PCS; 2021-05-20)
PROC: 02HV33Z Insertion of Infusion Device into Superior Vena Cava, Percutaneous Approach (ICD-10-PCS; 2021-05-22)
PROC: 30233N1 Transfusion of Nonautologous Red Blood Cells into Peripheral Vein, Percutaneous Approach (ICD-10-PCS; 2021-06-08)
DX: A41.89 Other specified sepsis (principal); U07.1 COVID-19; J12.82 Pneumonia due to coronavirus disease 2019; J96.01 Acute respiratory failure with hypoxia; G92 Toxic encephalopathy; N17.9 Acute kidney failure, unspecified; N39.0 Urinary tract infection, site not specified; E46 Unspecified protein-calorie malnutrition; Z68.45 Body mass index [BMI] 70 or greater, adult; M62.82 Rhabdomyolysis; E87.0 Hyperosmolality and hypernatremia; Z79.899 Other long term (current) drug therapy; E66.01 Morbid (severe) obesity due to excess calories; D70.9 Neutropenia, unspecified; B96.20 Unspecified Escherichia coli [E. coli] as the cause of diseases classified elsewhere; F41.1 Generalized anxiety disorder; R65.20 Severe sepsis without septic shock; E11.65 Type 2 diabetes mellitus with hyperglycemia; Z79.4 Long term (current) use of insulin; W18.39XA Other fall on same level, initial encounter; Y93.89 Activity, other specified; Y92.89 Other specified places as the place of occurrence of the external cause; Y99.8 Other external cause status; K21.9 Gastro-esophageal reflux disease without esophagitis; D69.6 Thrombocytopenia, unspecified; I48.91 Unspecified atrial fibrillation; Z79.01 Long term (current) use of anticoagulants; B95.62 Methicillin resistant Staphylococcus aureus infection as the cause of diseases classified elsewhere; E87.6 Hypokalemia; I12.9 Hypertensive chronic kidney disease with stage 1 through stage 4 chronic kidney disease, or unspecified chronic kidney disease; E11.22 Type 2 diabetes mellitus with diabetic chronic kidney disease; N18.2 Chronic kidney disease, stage 2 (mild)
CPT/HCPCS: 10078; 10081; 10203; 50455; 85076

== ENCOUNTER 2021-06-23 16:46 | Inpatient (IN) | payer OTHER ==
[~2021-06-23] VITALS: Ht 167.6 cm; Wt 189.4 kg
[~2021-06-23 16:46] MED LIST: CLONIDINE HCL0.1 MG PO; HYDROCHLOROTHIA25 M1 PO; LEVOFLOXACIN750 MG PO; LIPITOR 40 MG T40 M1 PO; LOSARTAN POTAS100 MG PO; METFORMIN HCL500 MG PO; METOPROLOL SUC200 MG PO; NORVASC5 MG PO; TOPROL XL50 MG PO
[2021-06-23 20:36] VITALS: BP 130/63
--- NOTE | 2021-06-23 23:50 | NUR ---
PT ARRIVED TO FLOOR FROM 2N APPROX 2029. PT IN BARIATRIC BED UPON ARRIVAL TO UNIT. PT ALERT AND ORIENTED X4, APPROPRIATE AND COOPERATIVE. 02 AT 3L PER N/C. KERNS TO DD WITH YELLOW URINE TO BAG. PT DENIES PAIN. PT WITH YANKEUR SUCTION AT BEDSIDE. PT TOOK PO MED CRUSHED WITH PUDDING TOLERATING WELL. PT ORIENTED TO ROOM, CONSENTS AND BOOKLET GIVEN TO PT. STATED SHE WILL SIGN IN AM. PT WITH WHISPERED VOICE. BED ALARM ON AND CALL LIGHT IN REACH. WILL CONTINUE TO MONITOR.
[2021-06-24 05:38] LABS: HEMATOCRIT 32.6 % (37.0-47.0); HEMOGLOBIN 10.3 gm/dL (12.0-15.0); MCH 26.8 pg (26.0-34.0); MCHC 31.5 g/dL (28.0-37.0); MCV 85.1 fL (80.0-100.0); RBC 3.83 mil/uL (4.20-5.00); RDW 16.5 % (10.5-14.5); WBC 11.3 thou/uL (4.0-11.0)
[2021-06-24 06:08] LABS: CALCIUM 8.8 mg/dL (8.5-10.1); CREATININE 0.7 mg/dL (0.6-1.0); POTASSIUM 3.2 mmol/L (3.5-5.1)
[2021-06-24 07:25] VITALS: BP 140/73
--- NOTE | 2021-06-24 08:13 | NUR ---
Chart review, cm familiar with Annmarie and have visited with her brother and sister prior to acute rehab, while she was on acute hospital. Prior to hospital, She was living alone, in apartment. Independent. No DME. Use of o2 per nasal cannula and not ever had home oxygen in the past. Manage own medication. 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 Will cont. following as needed for dc needs.
[2021-06-24 09:46] LABS: MAGNESIUM 1.7 mg/dL (1.8-2.4)
--- NOTE | 2021-06-24 13:42 | NUR ---
Team meeting, recommendation: chaney, sister brought Annmarie short term disability paperwork for md to complete. passed on to MD during team. Diet mech, honey thick liquid. Re team
[2021-06-24 16:00] VITALS: BP 140/73
[2021-06-24 19:42] VITALS: BP 129/77
--- NOTE | 2021-06-25 04:42 | NUR ---
ASSUMED CARE AT 1900 OF 06/24. PATIENT IS A&OX4. DENIES PAIN OR SOB. EXHIBITS INTERMITTENT LOOSE COUGH, YANKEUR SUCTION AT BEDSIDE PRN. ON CONTINUOUS 2L OF O2 VIA NC. PATIENT REPORTS ABDOMINAL DISCOMFORT DUE TO NO HAVING A BM FOR SEVERAL DAYS. BOWEL SOUNDS WERE PRESENT AND HYPOACTIVE, SOFT TO PALPATION. LAXITIVES ADMINISTERED AT HS.PATIENT WAS ABLE TO HAVE A LARGE BM DURING SHIFT. MAXIMUM ASSIST WITH TURNS TO USE BEDPAN AND GET CLEANED UP. PATIENT REPORTS FEELING BETTER AFTER HAVING LARGE BM. SLEEPING DURING HOURLY ROUNDS, FALL PRECAUTIONS IN PLACE. WILL CONTINUE TO MONITOR.
[2021-06-25 07:15] VITALS: BP 143/79
--- NOTE | 2021-06-25 08:57 | NUR ---
PT LYING IN SPECIAL BARIATRIC BED. PT REFUSED MIRALAX AT THIS TIME DUE TO X2 LARGE BM DURING THE NIGHT. PT TOOK MEDS CRUSHED IN PUDDING. PT HAS KERNS TO DD FOR IMOBILITY. PT HAS IJ TO RT NECK SL. PT DENIES ANY PAIN AT THIS TIME.
--- NOTE | 2021-06-25 14:01 | NUR ---
I have reviewed the documentation by Myriam Grossman from 06/24/21 to 06/24/21 and I concur with it. CLAUDETTE CHANG
[2021-06-25 19:40] VITALS: BP 123/73
--- NOTE | 2021-06-26 03:37 | NUR ---
CARE ASSUMED AT 1900 PATIENT WAS IN BED AWAKE. PATIENT IS A SOFT TALKER, PATIENT AOX4 MAKES NEEDS KNOWN.PATIENT DENIED PAIN OR DISCOMFORT. PATIENT HAS A KERNS TO DD,CATH CARE DONE. PATIENT NEEDS MAXIMUM ASSISTANCE \WITH ADL. PATIENT ENCOURAGED FLUIDS,PATIENT ON HONEY THICK LIQUIDS. PATIENT REFUSED LAXATIVES. PATIENT ON 2L OF OXYGEN NO SOA OR DISTRESS NOTED. FALL PRECAUTION IN PLACE. PATIENT IN BED ASLEEP AT THIS TIME BREATHING REGULAR AND UNLABOURED.
[2021-06-26 08:00] VITALS: BP 140/74
[2021-06-26 20:05] VITALS: BP 104/57
--- NOTE | 2021-06-27 00:15 | NUR ---
PT ALERT AND ORIENTED X 4. KERNS PATENT DRAINING DARK YELLOW URINE. 02 ON AT 2L PER NC. RIJ INTACT. PT REFUSED MIRALAX AND LACTULOSE AT HS. PT DENIES PAIN OR DISCOMFORT. PT APPEARS TO BE SLEEPING ON HOURLY ROUNDS.
[2021-06-27 08:00] VITALS: BP 136/73
--- NOTE | 2021-06-27 09:41 | NUR ---
WOUND CARE F/U; WOUNDS ARE HEALED. NO NEED TO FOLLOW. RECONSULT IF NEEDED. DISCUSSED WITH RN TODAY.
--- NOTE | 2021-06-27 16:22 | NUR ---
Short term disability paper work completed 06/26 unable to fax or email r/t unknown sure.
[2021-06-27 19:51] VITALS: BP 123/70
--- NOTE | 2021-06-28 00:41 | NUR ---
PT ASSESSMENT COMPLETED AND VSS. MEDS GIVEN ORDERED AND WELL TOLERATED. FALL PRECAUTIONS IN PLACE. ASST WITH REPOSITION AND PULLING PT UP IN THE BED. PT WAS ABLE TO PULL HERSELF UP AND ASST WITH TURNS. KERNS WITH MODERATE AMOUNT OF OUTPUT. SAT WNL ON NC. 0 BM SO FAR THIS EVENING. PT SLEEPING WELL. WILL CONTINUE TO MONITOR FREQUENTLY. PT STATED THAT SHE WANTS TO BE ABLE TO GET STRONGER AND GET TO THE BATHROOM ON HER OWN.
[2021-06-28 08:00] VITALS: BP 127/63
--- NOTE | 2021-06-28 12:31 | NUR ---
Alert and orientated X4. Calm, cooperative and compliant. Speaks in whisper. FIO2 per NC at 2 L. Reg even spontaneous resp without nasal flaring or retractions. Reg HR auscultated. Color pale pink with brisk capillary refill and palpable peripheral pulses. Yellow urine per chaney to DD. Active bowel sounds over large, soft, rounded abdomen. OT assisted to side of bariatric bed and helped with sponge bath. States she had BM yesterday. Currently eating lunch without s/o distress.
[2021-06-28 19:39] VITALS: BP 107/54
[2021-06-29 08:35] VITALS: BP 148/84
--- NOTE | 2021-06-29 10:35 | NUR ---
VASCULAR ACCESS NURSE ROUNDING. THE CENTRAL LINE CONTINUES TO DWELL AND IS NOT NECESSARY WHICH IS INCREASING THIS PATIENTS RISK FOR A CENTRAL LINE BLOOD STREAM INFECTION. THE ORDER IS NOTED TO KEEP THE LINE IN FOR BLOOD DRAWS BUT NO LABS HAVE BEEN DRAWN FOR SEVERAL DAYS. SPOKE TO THE PATIENT WITH THE NURSE AT BEDSIDE AND INFORMED HER OF THE RISK AND HOW IMPORTANT IT IS TO REMOVE THE LINE SOON POSSIBLE. AWAITING MD ORDER FOR REMOVAL AT THIS TIME
--- NOTE | 2021-06-29 17:31 | NUR ---
ASSUMED CARE OF PT AT 0700 THIS MORNING. PT A/O X4, SKIN INTACT, VOICE SOFT AND SCRATCHY DUE TO BEING INTUBATED. ASSESSMENTS NOTED IN CHART AND OTHERWISE UNREMARKABLE. FALL PRECAUTIONS ARE IN PLACE. CALL LIGHT AND OTHER NEEDS ARE IN REACH. MEDS AND TX GIVEN NEEDED AND SCHEDULED. WILL MONITOR AND NOTE ANY CHANGES.
[2021-06-29 20:04] VITALS: BP 112/59
--- NOTE | 2021-06-30 02:48 | NUR ---
PT ASSESSMENT COMPLETED AND VSS. MEDS GIVEN ORDERED AND WELL TOLERATED. ASST WITH REPOSITION FOR COMFORT. KERNS DRAINING LARGE AMOUNT OF YELLOW URINE. ENC ORAL HONEY THICK FLUIDS. SAT WNL ON NC. PT STRUGGLING WITH HER CURRENT MEDICAL CONDITION AND APPEARS DEPRESSED. PROVIDED MUCH EMOTIONAL SUPPORT AND ENCOURAGEMENT. BG 149 THIS EVENING. SLEEPING WELL AT THIS TIME. WILL CONTINUE TO MONITOR FREQUENTLY.
[2021-06-30 05:56] LABS: HEMATOCRIT 30.1 % (37.0-47.0); HEMOGLOBIN 9.9 gm/dL (12.0-15.0); MCHC 32.8 g/dL (28.0-37.0); MCV 85.3 fL (80.0-100.0); PLATELET COUNT 183 thou/uL (150-400); RBC 3.53 mil/uL (4.20-5.00); RDW 17.7 % (10.5-14.5); WBC 5.8 thou/uL (4.0-11.0)
[2021-06-30 06:28] LABS: CALCIUM 8.6 mg/dL (8.5-10.1); CREATININE 0.7 mg/dL (0.6-1.0); MAGNESIUM 1.3 mg/dL (1.8-2.4)
[2021-06-30 06:44] LABS: POTASSIUM 2.7 mmol/L (3.5-5.1)
[2021-06-30 07:15] VITALS: BP 126/75
[2021-06-30 11:20] LABS: ABSOLUTE NEUTROPHILS 3.7 thou/uL (1.4-8.2); METAMYELOCYTES 3 %; MYELOCYTES 2 %
[2021-06-30 11:21] LABS: ANISOCYTOSIS 1+
--- NOTE | 2021-06-30 19:14 | NUR ---
PT ALERT AND ORIENTED TIMES FOUR. VSS, KERNS TO DD. PT DENIES PAIN/SOA. PT TOLERATES MEDS AND MEALS. PT WORKED VERY WELL WITH PT/OT TODAY. PT MOM AT BEDSIDE THIS EVENING. PT PROGRESSING TOWRADS POC GOALS.
[2021-06-30 19:50] VITALS: BP 110/59
--- NOTE | 2021-07-01 01:26 | NUR ---
assumed care approx 1900 evening 06/30. pt in bed sleeping at change of shift. 02 at 2l per n/c. pt awoke for lovenox shot and then went back to sleep. chaney to dd with dark yellow urine to bag. pt appears to be sleeping soundly. bed alarm on and call light in reach. will continue to monitor.
[2021-07-01 07:15] VITALS: BP 136/70
--- NOTE | 2021-07-01 09:24 | NUR ---
PT LYING IN SPECIAL AIR MATTRESS. PT DENIES ANY PAIN THIS AM. PT TOOK MEDS WITH HONEY THICK LIQUID WITHOUT ANY PROBLEMS. PT LUNGS CLEAR AND ON 2L NC. PT HAS KERNS TO DD. PT VOICE IS STILL A WHISPER. PT ABLE TO TURN IN BED WITH MINIMAL ASSISTANCE.
--- NOTE | 2021-07-01 12:52 | NUR ---
Team meeting, recommendation: o2 2 l/nc, honey thick liquids. standing with walker to get out of bed, needed more assist with getting back into bed. needs assist with medication and finances. 1 step into ranch style home. re team with anitciapted 07/18, hh, need to try wean oxygen.
--- NOTE | 2021-07-01 18:00 | NUR ---
ASSISTED PT ON BED DUNN PT STATED SHE NEEDED TO HAVE A BM. PT DID HAVE SOFT MED STOOL.
[2021-07-01 19:19] VITALS: BP 120/74
--- NOTE | 2021-07-01 23:59 | NUR ---
PT ASSESSMENT COMPLETED AND VSS. MEDS GIVEN ORDERED AND WELL TOLERATED. FALL PRECAUTIONS IN PLACE. ASST WITH REPOSITION FOR COMFORT. REPLACED SOILED INTERDRY FROM FOLDS AFTER CLEANING. PT REFUSED MEDICATIONS TO HELP WITH BOWEL MOVEMENTS AFTER HAVING A VERY LARGE BM DURING THE DAY. SAT WNL ON NC. SLEEPING WELL. WILL CONTINUE TO MONITOR FREQUENTLY.
[2021-07-02 05:22] LABS: HEMATOCRIT 31.9 % (37.0-47.0); HEMOGLOBIN 10.6 gm/dL (12.0-15.0); MCH 28.5 pg (26.0-34.0); MCHC 33.1 g/dL (28.0-37.0); MCV 86.1 fL (80.0-100.0); PLATELET COUNT 219 thou/uL (150-400); RBC 3.71 mil/uL (4.20-5.00); RDW 18.1 % (10.5-14.5); WBC 5.8 thou/uL (4.0-11.0)
[2021-07-02 05:35] LABS: CALCIUM 9.1 mg/dL (8.5-10.1); CREATININE 0.6 mg/dL (0.6-1.0); MAGNESIUM 1.3 mg/dL (1.8-2.4); POTASSIUM 3.3 mmol/L (3.5-5.1)
[2021-07-02 07:15] VITALS: BP 123/63
--- NOTE | 2021-07-02 11:06 | NUR ---
ASSUMED CARE AT 0700. PATIENT IS ALERT AND ORIENTED X4, DEPRESSED. 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 LUNGS ARE CLEAR AND DEMINISHED. 02 AT 2L PER N/C. O2 SAT 94% ON 2L PER N/C. PATIENT IS IN BARIATRIC BED. ABD IS SOFT WITH BSX4. BM PER BEDPAN TODAY. UP ON SIDE OF BED WITH P.T. FALL AND SAFETY PROTOCOLS IN PLACE. DENIES PAIN AT THIS TIME. KERNS TO DD, DRAINING KENDALL COLORED URINE. CONTINUES TO PROGRESS SLOWLY TOWARDS D/C GOALS. WILL CONTINUE TO MONITER.
[2021-07-02 14:02] LABS: ABSOLUTE NEUTROPHILS 3.2 thou/uL (1.4-8.2); ANISOCYTOSIS 2+; METAMYELOCYTES 2 %; MYELOCYTES 2 %
[2021-07-02 18:18] LABS: URINE BILIRUBIN NEGATIVE (Negative); URINE BLOOD 1+ (Negative); URINE CLARITY CLEAR; URINE COLOR YELLOW; URINE GLUCOSE-RANDOM* NEGATIVE (Negative); URINE KETONES NEGATIVE (Negative); URINE LEUKOCYTES-REFLEX 2+ (Negative); URINE NITRITE-REFLEX POSITIVE (Negative); URINE PROTEIN (DIPSTICK) NEGATIVE (Negative); URINE SPECIFIC GRAVITY <= 1.005 (1.005-1.035); URINE UROBILINOGEN 0.2 E.U./dl (0.2-1.0)
[2021-07-02 18:54] LABS: SQUAMOUS 0-3 Few /LPF (0-3)
[2021-07-02 18:55] LABS: AMORPHOUS URATES Few /LPF (None Seen); URINE RBC 1-2 Rare /HPF (NONE SEEN); URINE WBC-REFLEX 6-15 Few /HPF (0-5)
[2021-07-02 19:50] VITALS: BP 123/60
--- NOTE | 2021-07-02 21:23 | NUR ---
ASSUMED CARE OF PT AT 1915. PT IS A&OX4. IS ON 2L OF O2/NC. LUNGS ARE CLEAR, BUT DEMENSISHED. DENIES SOB AT THIS TIME. NO RESPIRATORY DESTRESS NOTED. DENIES PAIN. IS STABLE. IS UP WITH ASSIST X2, GB, PIVOT TO BSC. FALL PRECAUTIONS & HOURLY ROUNDING CONTINUED THIS SHIFT. PT REPORTED IS ABLE TO TURN SELF IN BED & PULL SELF UP IN BED. CONFIRMED BY CAFETERIA SERVER. PT REFUSED TURNS FROM NURSE & AID. KERNS IN PLACE. CALL LIGHT WITHIN REACH. WILL CONTINUE TO MONITOR. PT IS CURRENTLY ASLEEP.
[2021-07-03 08:00] VITALS: BP 130/72
--- NOTE | 2021-07-03 12:34 | NUR ---
return call to sister asael, had question about dc date, where can go if cant go home, skilled rehab, selling her house and going to get her an apartment. really need her walking to be able to dc per asael # [phone].
--- NOTE | 2021-07-03 13:44 | NUR ---
PT ALERT AND ORIENTED TIMES FOUR WITH FLAT SAD AFFECT. VSS. KERNS TO DD. PT DENIES PAIN/SOA. PT TOLERATES MEDS AND MEALS. PT WORKED WELL WITH PT/OT, AND SITTING ON THE SIDE OF THE BED. PT PROGRESSING TOWRADS POC GOALS.
[2021-07-03 19:48] VITALS: BP 118/69
--- NOTE | 2021-07-03 23:55 | NUR ---
PT ASSESSMENT COMPLETED AND VSS. MEDS GIVEN ORDERED AND WELL TOLERATED. FALL PRECAUTIONS IN PLACE. PT DEPRESSED AND DOWN TONIGHT. PROVIDED MUCH EMOTIONAL SUPPORT. REMINDED PT THAT SHE IS GETTING STRONGER. SHE WAS PROUD OF HERSELF FOR WALKING 10 STEPS WITH THERAPY TODAY. REMINDED PT THAT SHE IS NOW ON NECTOR THICK INSTEAD OF HONEY THINK. THAT SHE IS GETTING STRONGER. ASST WITH REPOSITION FOR COMFORT. CLAMPING KERNS ON AND OFF. SLEEPING WELL. WILL CONTINUE TO MONITOR FREQUENTLY.
[2021-07-04 07:29] VITALS: BP 138/82
[2021-07-04 19:24] VITALS: BP 128/78
--- NOTE | 2021-07-05 02:05 | NUR ---
assumed care approx 1900 evening 07/04. pt lying in specialty bed dozing off and on at change of shift. pt with whispered voice sometimes difficult to hear her voice. chaney to dd with yellow urine to bag. pt with flat affect and seems depressed. pt took hs med with pudding tolerating well. pt given much encouragement regarding therapy, etc. 02 at 2l per n/c. appears to be sleeping soundly. bed alarm on and call light in reach. will continue to monitor.
[2021-07-05 08:00] VITALS: BP 137/81
--- NOTE | 2021-07-05 10:13 | NUR ---
PT FINISHED WORKING WITH THERAPY. PT HAS KERNS TO DD. CLAMPED KERNS FOR BLADDER TRAINING. PT STATED SHE DIDN'T THINK SHE WAS STRONG ENOUGH TO HAVE KERNS OUT, IMPORTANCE TO UTI RISK AND ALREADY HAVE UTI. PT ABLE TO PULL SELF UP IN BED WHILE IN [place]ENDE[place]G POSITION. PT LUNGS CLEAR AND ON 2L NC. WILL WEAN OFF OXYGEN AND D/C KERNS TODAY. PT TOLERATING NECTOR THICK LIQUIDS WITHOUT COUGH. PT HAD BM YESTERDAY. PT HAS SUCTION AT BEDSIDE, PT SAVANNAH. ICE CHIPS AND USING YAUNKER TO SUCK UP WATER.
--- NOTE | 2021-07-05 14:05 | NUR ---
IV TEAM IS IN ROOM AT THIS TIME PLACING A MID-LINE FOR IV ABX FOR UTI.
--- NOTE | 2021-07-05 15:10 | NUR ---
CLAMPED KERNS AT THIS TIME. PT DIDN'T HAVE ANY SENSATION TO VOID PRIOR TO UNCLAMPING. PT OXYGEN TAKEN DOWN TO 1L NC. PT SAT 93-95%. PT NEW ABX STARTED TO MIDLINE TO RT ARM.
--- NOTE | 2021-07-05 15:26 | NUR ---
VAT CONSULTED FOR MIDLINE FOR ABX. PT'S LABS,MEDS,HX REVIEWED. DISCUSSED BENEFITS AND RISK OF ML WITH PT, VERBALIZED UNDERSTANDING, GAVE VERBAL CONSENT. LADY CEPHALIC WIDELY PATENT WITH USG, VESSEL DEEP. 20CM BIOFLO MIDLINE INSERTED TO 2CM EXTERNAL WITH BRISK BR. PT TOLERATED WELL. ML RELEASED FOR IMMEDIATE USE PER PROTOCOL.
--- NOTE | 2021-07-05 16:00 | NUR ---
PT STATED SHE COULDN'T BREATHE, PT ASKED STAFF TO INCREASE TO 2L NC. PT SAT ON 2L NC 96%.
[2021-07-05 19:16] VITALS: BP 121/66
--- NOTE | 2021-07-05 23:37 | NUR ---
PT C/O UPSET STOMACH, STATING THAT THIS WAS A PERSISTENT ISSUE. RN MESSAGED DIRECTOR OF RESTAURANTS AND ORDER RECEIVED FOR PRN ONDANSETRON. THIS WAS PULLED BUT NOT YET GIVEN, PT IS ASLEEP AT PRESENT TIME. KERNS WAS CLAMPED FOR 5 HOURS AT START OF SHIFT, BUT PT DID NOT FEEL ANY PRESSURE TO VOID. CLAMPING TO CONTINUE WHEN AWAKE AND ABLE TO NOTE WHEN BLADDER IS FELING FULL. CURRENTLY UNCLAMPED. PT DEMONSTRATED ABILITY TO TURN HERSELF, AND IS CURRENTLY ON HER LEFT SIDE. WILL GIVE ZOFRAN IF SHE AWAKENS AND REQUESTS.
[2021-07-06 02:45] LABS: HEMATOCRIT 32.5 % (37.0-47.0); HEMOGLOBIN 10.6 gm/dL (12.0-15.0); MCH 27.8 pg (26.0-34.0); MCHC 32.6 g/dL (28.0-37.0); MCV 85.5 fL (80.0-100.0); RBC 3.8 mil/uL (4.20-5.00); RDW 17.5 % (10.5-14.5); WBC 6.9 thou/uL (4.0-11.0)
[2021-07-06 03:05] LABS: ALBUMIN 3.1 g/dL (3.4-5.0); CALCIUM 8.8 mg/dL (8.5-10.1); CREATININE 0.8 mg/dL (0.6-1.0); PHOSPHORUS 5.6 mg/dL (2.6-4.7)
[2021-07-06 07:15] VITALS: BP 129/72
--- NOTE | 2021-07-06 19:07 | NUR ---
KERNS REMOVED AT 1130. PT HAS VOIDED ACCURATELY
--- NOTE | 2021-07-06 19:12 | NUR ---
PT WOULD NOT GET UP TO BSC. PT STATED SHE DID NOT THINK THERE WAS ENOUGH TIME. THIS NURSE WAS IN PT ROOM WHEN PT STATED SHE NEEDED TO GO TO THE BATHROOM. THIS NURSE SUGGESTED THE BSC, PT SAID NO AND WHEN THIS NURSE BROUGHT BACK THE SMALL BED DUNN THE PT STATED, "THATS TOO LITTLE WHERE IS THE BIG ONE." THIS NURSE STATED THAT IT WAS PROBABLY THROWN AWAY, PT ASKED "WHY: THIS NURSE STATED BECAUSE YOU NEED TO USE THE BSC AND NOT THE BEDPAN. PT REFUSED AND THEN STATED SHE WANTED THE BED DUNN
[2021-07-06 19:18] VITALS: BP 116/66
--- NOTE | 2021-07-07 03:17 | NUR ---
assumed care approx 1900 evening 07/06. pt lying in bed dozing off and on at change of shift. hill-rom rep came and changed out mattress in evening and pt assisted to chair while waiting to have mattress traded out. pt appears to be sleeping soundly. 02 at 2L per n/c. pt NPO after midnight. call light in reach. will continue to monitor.
[2021-07-07 08:00] VITALS: BP 132/75
--- NOTE | 2021-07-07 10:37 | NUR ---
ASSUMED CARE AT 0700. PATIENT IS ALERT AND ORIENTED X4. PATIENT PARRA'S, BLOCK SAWYER ARE EQUAL. LUNGS ARE CLEAR AND DEMINISHED. 02 AT 2L PER N/C. PATIENT CONTINUES ON RESPIRATORY TX. PATIENT HAD ULTASOUND OF ABD THIS A.M. U.S. IS NEGATIVE. DIET AND MEDS RESUMED. PATIENT HAS IV ACCESS IN RIGHT UPPER ARM MIDLINE. PATIENT SAT ON SIDE OF BED FOR MEALS. PATIENT IS UP TO THE BSC WITH MAX ASSIST OF 2 STAFF. FALL AND SAFETY PROTOCOLS IN PLACE. DENIES PAIN AT THIS TIME. CONTINUES TO PROGRESS SLOWLY TOWARDS D/C GOALS. WILL CONTINUE TO MONITER.
[2021-07-07 19:18] VITALS: BP 126/73
--- NOTE | 2021-07-07 23:51 | NUR ---
PT ALERT AND ORIENTED X 4 WITH FLAT AFFECT. RIGHT UPPER ARM MIDLINE INTACT. 02 ON AT 2L PER NC CONT. PT TOOK HS MEDS IN PUDDING WITHOUT DIFFICULTY. PT REFUSED MIRALAX AND LACTULOSE AT HS. PT DENIES PAIN OR DISCOMFORT. PT APPEARS TO BE SLEEPING ON HOURLY ROUNDS.
[2021-07-08 05:46] LABS: HEMOGLOBIN 10.2 gm/dL (12.0-15.0); MCH 28.2 pg (26.0-34.0); MCHC 32.8 g/dL (28.0-37.0); RBC 3.61 mil/uL (4.20-5.00); RDW 17.5 % (10.5-14.5); WBC 6.2 thou/uL (4.0-11.0)
[2021-07-08 06:21] LABS: CALCIUM 8.8 mg/dL (8.5-10.1); CREATININE 0.9 mg/dL (0.6-1.0); POTASSIUM 3.3 mmol/L (3.5-5.1)
[2021-07-08 08:00] VITALS: BP 116/77
--- NOTE | 2021-07-08 08:46 | NUR ---
PT SITTING UP WITH THERAPY THIS AM. PT ABLE TO TAKE MEDS WHOLE IN YOGART. PT WOULD LIKE TO TAKE THIN WATER. PT STILL HAS OXYGEN ON 2L NC. PT VOIDING WITHOUT KERNS. PT STATED SHE DIDN'T FEEL GOOD TODAY. PT STATED FELT LIKE SHE IS COMING DOWN WITH A FLU.
--- NOTE | 2021-07-08 09:54 | NUR ---
Voice message from desmond with [employer], offering any dc assist if needed. Call [facility] [phone] for any dc needs.
--- NOTE | 2021-07-08 13:34 | NUR ---
Team meeting, recommendation. 75ft fww with wheelchair follow. Diet mech soft with nectar thick liquid. Dc 07/18 hh (pt, ot, st, nursing and sw). No driving till cleared with MD. Possible will need oxygen r/t not able to wean.
--- NOTE | 2021-07-08 14:59 | NUR ---
ADM KDUR 40MEQ X1 AND MAG 400MG X1 PO PER ORDER. PT WAS UP TO BSC TO HAVE A SOFT SWANSON BM, PT ALSO VOIDED IN BSC. PT WAS ABLE TO GET BACK TO BED AND WAS ABLE TO PULL SELF UP BEING IN [place].
[2021-07-08 20:08] VITALS: BP 140/76
--- NOTE | 2021-07-09 01:37 | NUR ---
ASSUMED CARE OF PT AT 1940 ON 07/08/21. PT IS A&OX4. IS ON 2L OF O2/NC. IS STABLE. DENIES PAIN. IS UP WITH 1 ASSIST, GB, WALKER TO [facility]. FALL PRECAUTIONS & HOURLY ROUNDING CONTINUED THIS SHIFT. DENIES CHEST PAIN, SOB, OR DIFFICULTY BREATHING. MEDICATIONS WERE ADMINISTERED IN PUDDING REQUESTED. TOLERATED WELL. IS TO EAT MEALS SITTING UP ON THE SIDE OF THE BED. REMAINS IN SPECIAL CONTACT ISOLATION. PT IS ABLE TO TURN SELF IN BED. LABS & VITALS REVIWED. IS CURRENTLY ASLEEP. CALL LIGHT WITHIN REACH. WILL CONTINUE TO MONITOR.
[2021-07-09 07:15] VITALS: BP 139/80
--- NOTE | 2021-07-09 10:25 | NUR ---
ASSUMED CARE AT 0700. PATIENT IS ALERT AND ORIENTED X4, BUT IS SAD ABOUT HER SITULATION. PATIENT PARRA'S, TIRE MECHANIC ARE EQUAL LUNGS ARE CLEAR AND DEMINISHED. PATIENT CONTINUES ON 02 AT 2L PER N/C. ABD IS SOFT WITH BSX4. PATIENT IS IN ISOLATION FOR SEVERE UTI. PATIENT IS UP TO THE BSC TO VOID KENDALL COLORED URINE. PATIENT IS UP WITH ASSIST OF 1-2 STAFF, WITH GAIT BELT AND WALKER. FALL AND SAFETY PROTOCOLS IN PLACE. C/O PAIN IN RIGHT CHEST FROM COUGHING. MEDICATED WITH PRN PAIN MED AND SCED COUGH MED. PATIENT CONTINUES TO PROGRESS SLOWLY TOWARDS D/C GOALS. PATIENT UP ON SIDE OF BED FOR MEALS. TOLERATING DIET WELL. CONTINUES ON NECTAR THICK LIQUIDS. WILL CONTINUE TO MONITER
[2021-07-09 20:09] VITALS: BP 130/68
[2021-07-09 23:09] LABS: URINE BILIRUBIN NEGATIVE (Negative); URINE BLOOD NEGATIVE (Negative); URINE CLARITY CLEAR; URINE COLOR YELLOW; URINE GLUCOSE-RANDOM* NEGATIVE (Negative); URINE KETONES NEGATIVE (Negative); URINE LEUKOCYTES-REFLEX TRACE (Negative); URINE NITRITE-REFLEX NEGATIVE (Negative); URINE PROTEIN (DIPSTICK) NEGATIVE (Negative); URINE UROBILINOGEN 0.2 E.U./dl (0.2-1.0)
--- NOTE | 2021-07-09 23:43 | NUR ---
PT ALERT AND ORIENTED X 4 WITH FLAT AFFECT. 02 ON AT 2L PER NC CONT. RIGHT MIDLINE IV INTACT. UA SENT TO LAB. PT TOOK HS MEDS IN PUDDING WITHOUT DIFFICULTY. PT DENIES PAIN OR DISCOMFORT. PT APPEARS TO BE SLEEPING ON HOURLY ROUNDS.
[2021-07-10 08:00] VITALS: BP 119/72
--- NOTE | 2021-07-10 09:11 | NUR ---
PT SITTING UP FOR BREAKFAST ON SIDE OF BED. PT COMPLAINED OF HEADACHE AND ADM TYLENOL 325MG 2 TABS PO FOR PAIN TO HEAD OF 9 ON 1-10 SCALE. PT TOOK MEDS IN STRAWBERRY YOGART, PT DOES TAKE NECTOR THICK LIQUIDS. PT HAS SUCTION AT BEDSIDE AND ALSO OXYGEN ON 2L NC. PT UP TO C THIS AM TO VOID AND HAD SMALL SOFT BM. PT LUNGS CLEAR. PT UP WITH X1 STAND-BY ASSIST WITH GAIT BELT TO W/C.
--- NOTE | 2021-07-10 12:32 | NUR ---
PT SITTING UP IN CHAIR WAITING FOR ST TO ASSIST WITH FOOD FOR LUNCH. PT STATED SHE HAS HEADACHE AND IS TIRED. ENCOURAGED PT TO DRINK WATER, PT STATED SHE HAS DRANK X2 SMALL CUPS OF LIQUID AT THIS TIME.
--- NOTE | 2021-07-10 13:39 | NUR ---
ADM TYLENOL 325MG 2 TABS PO FOR PAIN TO HEADACHE OF 5 ON 1-10 SCALE. PT STATED HER HEADACHE IS BETTER WHEN LYING IN BED THAN SITTING UP.
--- NOTE | 2021-07-10 16:24 | NUR ---
IV TEAM IS HERE TO SEE PT. SHE IS CHANGING HER MID-LINE DRESSING AT THIS TIME DUE TO PEELING.
[2021-07-10 20:00] VITALS: BP 138/78
--- NOTE | 2021-07-11 03:57 | NUR ---
ASSUMED CARE AT 1900 OF 07/10. PATIENT IS A&OX4. DENIES PAIN OR HEADACHE. ORAL FLUID INTAKE ENCOURAGED, NECTAR THICK FLUIDS PROVIDED. MINIMAL ASSISST OF 1 USING GB AND WALKER TO TRANSFER TO [facility], TO HAVE AND BM AND VOID KENDALL COLORED URINE. ON CONTINUOUS 2L OF O2 VIA NC. TOLERATED ORAL MEDICATIONS WHOLE IN YOGURT. ASSISTED WITH REPOSITIONING IN BED, ABLE TO TURN SELF FROM SIDE TO SIDE. FALL PRECAUTIONS IN PLACE, CALL LIGHT WITHIN REACH. WILL CONTINUE TO MONITOR.
[2021-07-11 06:21] LABS: HEMATOCRIT 29.2 % (37.0-47.0); HEMOGLOBIN 9.6 gm/dL (12.0-15.0); MCH 28.3 pg (26.0-34.0); RBC 3.4 mil/uL (4.20-5.00); RDW 17.1 % (10.5-14.5); WBC 5.6 thou/uL (4.0-11.0)
[2021-07-11 06:26] LABS: CREATININE 0.8 mg/dL (0.6-1.0); POTASSIUM 3.4 mmol/L (3.5-5.1)
[2021-07-11 08:00] VITALS: BP 144/88
--- NOTE | 2021-07-11 09:19 | NUR ---
PT GOT A SHOWER THIS AM. PT IS AMBULATING WELL WITH WALKER AND GAIT BELT. PT ABLE TO TRANSFER SELF FROM BED TO BSC TO W/C WITH STAND-BY ASSIST. PT DENIES ANY PAIN THIS AM. PT STILL TAKING MEDS WHOLE WITH STRAWBERRY YOGART. PT HAD LARGE SOFT BM THIS AM. PT STILL IN ISOLATION FOR CONTACT.
--- NOTE | 2021-07-11 13:42 | PLAN ---
[facility] [place] [address] REHAB UNIT PLAN OF CARE Name: DEBORAH COLBERT Room #: 512-P ADM IN M.R.#: [id number] Admission: 06/23/21 Attend Phys: Nazario Gomez MD Discharge: Date of : 70 Report #: [id number] THIS REPORT FOR: cc: FAM - No family physician/PCP FAM - No family physician/PCP Nazario Gomez MD ~ DATE OF SERVICE: 06/25/2021 HISTORY OF PRESENT ILLNESS: The patient was seen back today in followup. She is in no distress. Temperature 36.6, pulse 93, respirations 20, blood pressure 143/79. No focal calf swelling. She is on 2 L nasal cannula. Bed mobility is max assist, transfers bed to wheelchair are max assist utilizing the sliding board. She is nonambulatory, lower body dressing is max assist, upper body dressing is max assist. In speech, she is on a mechanical soft and honey thickened liquid diet. ASSESSMENT: 1. Critical illness myopathy. 2. Toxic metabolic encephalopathy. 3. Dysphagia. 4. Respiratory failure secondary to COVID-19. 5. Elevated liver function tests. 6. Neutropenia secondary to medication adverse effect. 7. Morbid obesity. 8. Diabetes mellitus type 2. 9. Hypertension. 10. Acute renal insufficiency. PLAN: The overall plan of care is based on the pre-admission screen and information garnered from therapy assessments. 1. Estimated length of stay is probably 14-21 days. 2. Medical prognosis is reasonably good. 3. Anticipated interventions includes the interdisciplinary acute inpatient rehabilitation program. 4. Anticipated functional outcomes would be for her to hopefully gradually improve as far as basic bed mobility, transfers, mobility, swallowing issues, cognition, so that she can return back to the home setting. 5. Discharge destination would be back to the home setting. She does live alone, does have some involved family. So hopefully she can make some gradual progress. 6. Expected therapy by discipline includes PT, OT and speech 1 hour per day each 5 days a week throughout the duration of the acute inpatient rehabilitation stay. ADDENDUM: The patient's prognosis for significant practical improvement within a reasonable period of time appears good. Given the patient's complex medical [facility] [address] [place] [address] REHAB UNIT PLAN OF CARE Name: DEBORAH COLBERT Room #: 512-P [facility].#: [id number] Admission: 06/23/21 Attend Phys: Nazario Gomez MD Discharge: Date of : 70 Report #: [id number] condition and risk of further medical complication, rehabilitation services could not be safely provided at a lower level of care such as a jail facility. <ELECTRONICALLY SIGNED> By: Nazario Gomez MD 07/11/21 1342 0925 1302 Nazario Gomez MD /nt
--- NOTE | 2021-07-11 14:07 | NUR ---
Cont. dcp as needed for dc needs and weekly team meetings. Dc 07/18/21.
[2021-07-11 15:22] LABS: URINE BILIRUBIN NEGATIVE (Negative); URINE BLOOD NEGATIVE (Negative); URINE CLARITY SL CLOUDY; URINE COLOR YELLOW; URINE GLUCOSE-RANDOM* NEGATIVE (Negative); URINE KETONES NEGATIVE (Negative); URINE NITRITE-REFLEX NEGATIVE (Negative); URINE PROTEIN (DIPSTICK) TRACE (Negative); URINE SPECIFIC GRAVITY >= 1.030 (1.005-1.035); URINE UROBILINOGEN 0.2 E.U./dl (0.2-1.0)
[2021-07-11 15:30] LABS: URINE LEUKOCYTES-REFLEX 1+ (Negative)
[2021-07-11 16:28] LABS: BACTERIA-REFLEX >30 Many /HPF (None Seen); SQUAMOUS 4-10 Moderate /LPF (0-3)
[2021-07-11 16:30] LABS: URINE RBC 3-10 Few /HPF (NONE SEEN)
[2021-07-11 16:31] LABS: AMORPHOUS URATES Few /LPF (None Seen)
--- NOTE | 2021-07-11 18:15 | NUR ---
PT SISTER CAME TO VISIT. PT IS GETTING TO AN APT TO BE CLOSER WITH HERE SISTERS SO THEY CAN HELP HER BETTER. PT IS HAVING COMPANY TOMMORROW, HER BROTHER AND A COUPLE OF SISTERS COMING FROM [place].
[2021-07-11 20:00] VITALS: BP 141/70
--- NOTE | 2021-07-12 05:27 | NUR ---
ASSUMED CARE AT 1900 OF 07/11. PATIENT IS A&OX4, DENIES PAIN OR SHORTNESS OF BREATH. MINIMUM TO STAND BY ASSIST, USING GAIT BELT AND WALKER FOR [place] [facility] [place] COLORED URINE. PATIENT TOLERATED ORAL MEDS WHOLE IN YOGURT. ASSISTED WITH REPOSITIONING IN BED. SLEEPING DURING HOURLY ROUNDS, CALL LIGHT WITHIN REACH. ABLE TO MAKE NEEDS KNOWN. WILL CONTINUE TO MONITOR.
[2021-07-12 07:30] VITALS: BP 130/82
--- NOTE | 2021-07-12 12:34 | NUR ---
ASSUMED CARE AT 0700. PATIENT IS ALERT AND ORINETED X4. PATIENT PARRA'S, HOT METAL MIXER OPERATOR ARE EQUAL. LUNGS ARE CLEAR AND DEMINISHED. CONTINUES ON 02 AT 2L PER N/C. ABD IS SOFT WITH BSX.4 UP TO THE BSC WITH WALKER AND SBA TO VOID AND HAVE A BM TODAY. FALL AND SAFETY PROTOCOLS IN PLACE. DENIES PAIN AT THIS TIME. MIDLINE IN THE RIGHT UPPER ARM INTACT. IV SITE WITHOUT REDNESS OR SWELLING. CONTINUES TO PROGRESS SLOWLY TOWARDS D/C GOALS. WILL CONTINUE TO MONITER.
[2021-07-12 20:00] VITALS: BP 130/68
--- NOTE | 2021-07-13 02:07 | NUR ---
ASSUMED CARE AT 1900 OF 07/12. PATIENT IS A&OX4, DENIES PAIN OR SHORTNESS OF BREATH. CONTINUES ON 2L OF O2 VIA NC. STAND BY ASSIST WITH TRANSFER [place] [facility] USING GB AND WALKER. TOLERATED ALL ORAL MEDS WHOLE IN YOGURT. SLEEPING DURING HOURLY ROUNDS, FALL PRECAUTIONS IN PLACE. ABLE TO MAKE NEEDS KNOWN, CALL LIGHT WITHIN REACH, WILL CONTINUE TO MONITOR.
[2021-07-13 07:20] VITALS: BP 135/83
--- NOTE | 2021-07-13 09:14 | NUR ---
PT SITTING ON SIDE OF BED EATING BREAKFAST. PT HAS VISITORS COMING TODAY, HER BROTHER AND SISTERS. PT DENIES ANY PAIN. PT HAS MIDLINE TO RT UPPER ARM. PT UP TO BSC WITH VOIDING. PT STAND-BY ASSIST WITH WALKER.
[2021-07-13 21:44] VITALS: BP 134/80
--- NOTE | 2021-07-14 00:10 | NUR ---
PT ALERT AND ORIENTED X 4. UP TO BSC WITH ASSIST X 1. 02 ON AT 2L PER NC CONT. RIGHT MIDLINE IV INTACT. PT TOOK HS MEDS IN PUDDING WITHOUT DIFFICULTY. REFUSED LACTULOSE AND MIRALAX AT HS. PT DENIES PAIN OR DISCOMFORT. BED ALARM ON FOR SAFETY. PT APPEARS TO BE SLEEPING ON HOURLY ROUNDS.
[2021-07-14 07:15] VITALS: BP 128/69
--- NOTE | 2021-07-14 07:24 | NUR ---
ASSUME CARE 0230. PT RESTING IN BED. DENIES PAIN. MODERATE TOLERANCE TO ACTIVITY. PT IS UP TO BATHROOM WITH MINIMAL ASSISTANCE. ASSESSMENT CHARTED. PROGRESSING WELL TOWARDS POC. PLAN IS TO CONTINUE MONITOR AND TREAT RESPIRATORY FUNCTION, WELL CONTINUE TO WORK WITH PT/OT. WILL CONTINUE TO MONITOR AND FOLLOW WITH POC
--- NOTE | 2021-07-14 08:40 | NUR ---
PT SITTING UP ON SIDE OF BED FOR BREAKFAST. PT ABLE TO TAKE MEDS WITH PUDDING THIS AM. PT STILL HAS OXYGEN ON 2L NC. PT DENIES ANY PAIN. PT UP WITH STAND-BY ASSIST TO BSC WHEN NEEDING TO VOID OR HAVE BM. PT LUNGS CLEAR. PT HAD SOFT BM YESTERDAY. PT HAS MIDLINE TO RT UPPER ARM.
[2021-07-14 20:22] LABS: URINE BILIRUBIN NEGATIVE (Negative); URINE BLOOD NEGATIVE (Negative); URINE CLARITY CLEAR; URINE COLOR YELLOW; URINE GLUCOSE-RANDOM* NEGATIVE (Negative); URINE KETONES NEGATIVE (Negative); URINE LEUKOCYTES-REFLEX TRACE (Negative); URINE NITRITE-REFLEX NEGATIVE (Negative); URINE PROTEIN (DIPSTICK) 1+ (Negative); URINE SPECIFIC GRAVITY 1.025 (1.005-1.035); URINE UROBILINOGEN 0.2 E.U./dl (0.2-1.0)
[2021-07-14 20:26] LABS: BACTERIA-REFLEX 1-9 Few /HPF (None Seen); CASTS None Seen /LPF (None Seen); SQUAMOUS 0-3 Few /LPF (0-3); URINE RBC None Seen /HPF (NONE SEEN); URINE WBC-REFLEX 0-5 Rare /HPF (0-5)
[2021-07-14 20:27] LABS: CRYSTALS None Seen /LPF (None Seen)
--- NOTE | 2021-07-15 03:43 | NUR ---
PATIENT HAS BEEN IN BED MOST OF SHIFT. SHE WAS AN ASSIST X 2 TO BS. URINE WAS COLLECTED FOR UA AND CULTURE. PATIENT DENIES PAIN. SHE IS ON 02 2L NC. SHE IS ABLE TO POSITION HERSELF INTO BED. SHE DID HAVE BM 07/14/21. PATIENT IS STILL ON CONTACT ISOLATION FOR PSEUDONAMUS IN URINE AND BLOOD. SHE IS A/0 X 3. LCTA BILATERALLY. PATIENT TOOK MEDS WHOLE IN YOGURT. PATIENT BED IN LOW POSITION AND LOCKED. CONTINUIING TO MONITOR.
[2021-07-15 08:00] VITALS: BP 141/79
--- NOTE | 2021-07-15 10:12 | NUR ---
ASSUMED CARE AT 0700. PATIENT IS ALERT AND ORIENTED X4. PAIENT PARRA'S, TYPE CUTTER ARE EQUAL. LUNGS ARE DEMINISEHD. 02 AT 1L PER N/C. 02 SAT 97%. UP IN SIDE OF BED FOR MEALS. UP WITH WALKER TO BS TO VOID AND HAVE BM. PATIENT HAS MIDLINE IN THE RIGHT UPPER ARM. IV SITE WITHOUT REDNESS OR SWELLING. FALL AND SAFETY PROTOCOLS IN PLACE. DENIES PAIN AT THIS TIME. CONTINUES TO PROGRESS TOWARDS D/C GOALS. WILL CONTINUE TO MONITER.
--- NOTE | 2021-07-15 12:43 | NUR ---
team meeting: can pull up own paints now, fatigue quickly. reg solid diet with nectar thick liquid. Going to start calling for her meds. still looking at apartment. DC 07/21 hh ( pt, ot, st, nursing ), resp therapy to check on Wednesday to see if she needs home o2. Cont to wean oxygen. outpt neuropsych.
--- NOTE | 2021-07-15 16:06 | NUR ---
left message # [phone] for aetna r/t dcp requested a call back. dcp 07/21/21. Will cont following as needed for dc needs
[2021-07-15 20:00] VITALS: BP 129/73
--- NOTE | 2021-07-16 04:41 | NUR ---
ASSUMED CARE AT 1900 OF 07/15. PATIENT IS A&OX4. NO C/O PAIN REPORTED BY PATIENT. ON CONTINUOUS 2L OF O2 VIA NC FOR O2 SATURATION TO REMAIN ABOVE 94%. STAND BY ASSIST WITH TRANSFERS FROM BED TO BSC TO VOID. TOLERATED ORAL MEDS WHOLE IN YOGURT. ASSISTED WITH REPOSITIONING. FALL PRECAUTIONS IN PLACE, CALL LIGHT WITHIN REACH. WILL CONTINUE TO MONITOR.
[2021-07-16 07:15] VITALS: BP 130/73
--- NOTE | 2021-07-16 09:31 | NUR ---
ASSUMED CARE AT 0700. PATIENT IS ALERT AND ORIENTED X4. PATIENT PARRA'S, WEATHER STRIPPER ARE EQUAL. LUNGS ARE CLEAR AND DEMINISHED. 02 AT 2L PER N/C. PLAN EXERCISE OXIMENTRY ON SUN. TO QUALIFY FOR HOME 02. PLAN VIDEOSWALLOW AT NOON. ABD IS SOFT WITH BSX4. UP TO BSC WITH WALKER AND SBA. [facility] BED CHANGED OUT. ABD IS SOFT WITH BSX4. PLAN REPEAT UA . FALL AND SAFETY PROTOCOLS IN PLACE. DENIES PAIN AT THIS TIME. CONTINUES TO PROGRESS SLOWLY TOWARDS D/C GOALS. WILL CONTINUE TO MONITER.
[2021-07-16 15:31] LABS: URINE BILIRUBIN NEGATIVE (Negative); URINE BLOOD NEGATIVE (Negative); URINE CLARITY CLEAR; URINE COLOR YELLOW; URINE GLUCOSE-RANDOM* NEGATIVE (Negative); URINE KETONES NEGATIVE (Negative); URINE LEUKOCYTES-REFLEX NEGATIVE (Negative); URINE NITRITE-REFLEX NEGATIVE (Negative); URINE PROTEIN (DIPSTICK) TRACE (Negative); URINE UROBILINOGEN 0.2 E.U./dl (0.2-1.0)
[2021-07-16 19:29] VITALS: BP 106/56
--- NOTE | 2021-07-17 03:19 | NUR ---
ASSUMED CARE AT 1900 OF 07/16. PATIENT IS A&OX4, DENIES PAIN OR SHORTNESS OF BREATH. CONTINUES ON 2L OF OXYGEN VIA NC. TOLERATED ORAL MEDS WHOLE IN YOGURT, AND HAS BEEN UPGRADED TO THIN LIQUDS. STAND BY ASSISST WITH TRANSFER [place] [facility] [place] AND HAVE A BM, USING WALKER. FALL PRECAUTIONS IN PLACE, CALL LIGHT WITHIN REACH. WILL CONTINUE TO MONITOR.
[2021-07-17 08:00] VITALS: BP 135/76
--- NOTE | 2021-07-17 08:52 | NUR ---
VASCULAR ACCESS NURSE-THIS PATIENT IS NO LONGER ON IV MEDS OR HAVING LAB DRAWS. RECOMMEND REMOVAL OF MIDLINE TO DECREASE THE RISK OF A BLOOD STREAM INFECTION
--- NOTE | 2021-07-17 17:59 | NUR ---
Pt A & O x4. Pt VS stable. Pt received medications as ordered. Pt worked with PT/OT. Pt is able to make needs known.
--- NOTE | 2021-07-17 19:22 | NUR ---
Pt midline IV removed thius shift. Pt did not call for meds all this shift.
[2021-07-17 19:52] VITALS: BP 135/74
--- NOTE | 2021-07-17 23:08 | NUR ---
ASSUMED CARE OF PT AT 1930. PT IS A&OX4. IS 2L OF O2/NC. DENIES PAIN. IS STABLE. REPORTS DIZZNESS WITH AMBULATING. VOIDS PER BEDSIDE COMMODE. IS ABLE TO TURN SELF IN BED. IS UP WITH STANDBY ASSIST, GB, WALKER. FALL PRECAUTIONS & HOURLY ROUNDING CONTINUED THIS SHIFT. TAKES MEDS WHOLE IN YOGURT. PT IS TO CALL FOR MEDICATIONS. PT DID NOT CALL THIS EVENING FOR MEDS. REMINIDER GIVEN. PT IS CURRENTLY IN BED ASLEEP. CALL LIGHT WITHIN REACH. REMIANS IN CONTACT ISOLATION. WILL COTINUE TO MONITOR.
[2021-07-18 05:13] LABS: CALCIUM 9.4 mg/dL (8.5-10.1); CREATININE 1.1 mg/dL (0.6-1.0); MAGNESIUM 1.3 mg/dL (1.8-2.4)
[2021-07-18 05:18] LABS: ABSOLUTE NEUTROPHILS 4.3 thou/uL (1.4-8.2); HEMATOCRIT 33.4 % (37.0-47.0); MCH 28.5 pg (26.0-34.0); MCHC 32.8 g/dL (28.0-37.0); MCV 86.9 fL (80.0-100.0); MONOCYTES 9.4 % (1.0-8.0); PLATELET COUNT 255 thou/uL (150-400); POLYS 63.6 % (36.0-66.0); RBC 3.84 mil/uL (4.20-5.00); RDW 16.5 % (10.5-14.5); WBC 6.7 thou/uL (4.0-11.0)
[2021-07-18 05:45] LABS: POTASSIUM 2.9 mmol/L (3.5-5.1)
[2021-07-18 08:00] VITALS: BP 136/93
--- NOTE | 2021-07-18 09:15 | NUR ---
ASSUMED CARE AT 0700. PATIENT IS ALERT AND ORIENTED X4. PATIENT PARRA'S, FORENSIC CHEMIST ARE EQUAL. LUNGS ARE CLEAR AND DEMINISHED. ABD IS SOFT WITH BSX4. PATIENT IS UP TO BSC WITH SBA. FALL AND SAFETY PROTOCOLS IN PLACE. C/O FRANCES. MEDICATED WITH PRN PAIN MED. UP ON SIDE OF BED FOR MEALS. CONTINUES TO PROGRESS TOWARDS D/C GOALS. WILL CONTINUE TO MONITER.
--- NOTE | 2021-07-18 12:27 | NUR ---
Cont. dcp. [place] 07/1821. Resp therapy to check her o2 exercise ox to get her home o2 set up for [place]. Osvaldo sanchez at [place].
[2021-07-18 19:42] VITALS: BP 115/70
--- NOTE | 2021-07-19 02:40 | NUR ---
PT CARE ASSUMED WITH PT IN BED WATCHING TV.PT IS A/O X4.PT IS UP X2 TO BS AND ALSO USES A PUREWICK.PT IS ON 2L OF O2 VIA NC.TAKES MEDS WHOLE WITH YOGURT.PT ON ISOLATION CONTACT PRECAUTION.C/O HEADACHE AND RELIEF WITH TYLENOL.WILL CONTINUE TO MONITOR PER POC
[2021-07-19 08:55] VITALS: BP 134/90
--- NOTE | 2021-07-19 16:07 | NUR ---
Pt remained safe, comfortable watching TV, adequate appetite, appropriate mood , afebrile, on 2L of O2 NC, BG controlled, worked with PT/OT, takes meds whole, no new concerns with yogurt, moved from bed to chair with maximum assist, no other concerns.
[2021-07-19 19:43] VITALS: BP 114/67
--- NOTE | 2021-07-20 00:15 | NUR ---
PT ALERT AND ORIENTED X 4. MODIFIED INDEPENDENT IN ROOM WITH WALKER. 02 ON AT 2L PER NC CONT. PT TAKES MEDS IN YOGURT WITHOUT DIFFICULTY. PT DENIES PAIN OR DISCOMFORT. PT NERVOUS ABOUT GOING HOME ON WEDNESDAY. PT APPEARS TO BE SLEEPING ON HOURLY ROUNDS.
[2021-07-20 08:21] VITALS: BP 112/77
[2021-07-20 20:00] VITALS: BP 111/64
--- NOTE | 2021-07-21 04:45 | NUR ---
07-20-21 CARE TRANSFERRED 1914. PT AAOX4, VSS, RR EVEN AND NONLABORED AT REST ON 1L 02, SOA R/T MOVEMENT AFTER PT REPOSITION IN BED 02 DROP 77-83, RETURNED TO 90-93% RANGE PROMPTLY. PT HAS TOLERATED WELL SITTING ON SIDE OF BED AND WAITING TO TRANSFER TO BEDSIDE COMMODE. PT HAD NO DIFFICULTIES TAKING MEDICATION IN YOGURT. PT BED WAS ADJUSTED FOR COMFORT AND BED ALARM SET FOR SAFETY.
[2021-07-21 08:04] VITALS: BP 130/72
--- NOTE | 2021-07-21 08:15 | NUR ---
Cm visited with physical therapy. Cm visited with wilfred, Discussed dme needs, home o2 and wheel chair. Provider plus able to do the home dme needs.
--- NOTE | 2021-07-21 08:25 | NUR ---
PT SITTING UP ON SIDE OF BED TO EAT BREAKFAST. PT HAS OXYGEN ON 1L NC. PT STATED SHE IS GOING HOME TODAY. PT STATED SHE FEELS EXCITED AND WILL MISS HER CARE HERE. PT STATED WE WAS ALL ANGELS AND TOOK GOOD CARE OF HER. PT TOOK MEDS WITH ERLIN SHIPMAN, SHE DIDN'T LIKE THE TASTE OF THAT.
[2021-07-21] MEDS ORDERED: ULTRA-LIGHT RO1 EACH MC (09:42)
[2021-07-21] MEDS ORDERED: OXYGEN MISCELL (09:42)
[2021-07-21] MEDS ORDERED: ZINC SULFATE50 MG PO (11:22)
[2021-07-21] MEDS ORDERED: ZOFRAN ODT4 MG DISSOLVE (11:22)
[2021-07-21] MEDS ORDERED: VITCB500GO PO (11:22)
[2021-07-21] MEDS ORDERED: PEPCID20 MG PO (11:22)
[2021-07-21] MEDS ORDERED: TOPROL XL50 MG PO (11:22)
[2021-07-21] MEDS ORDERED: EFFEXOR XR75 MG PO (11:22)
[2021-07-21] MEDS ORDERED: K-DUR 20 MEQ T20 MEQ PO ×2 (11:22→12:37)
[2021-07-21] MEDS ORDERED: HYDROCHLOROTHIA25 M1 PO (11:22)
[2021-07-21] MEDS ORDERED: MAGOX 400400 MG PO (11:22)
[2021-07-21] MEDS ORDERED: VITAMIN D325 MC2 PO (11:22)
[2021-07-21 12:05] VITALS: BP 138/72
[2021-07-21] MEDS ORDERED: PROBIOTIC1 EAC7 PO (12:15)
[2021-07-21] MEDS ORDERED: VENTOLIN HFA 1818 GM INH (12:15)
--- NOTE | 2021-07-21 15:30 | NUR ---
PT LEFT WITH VIA W/C WITH OXYGEN ON 2L NC AND FAMILY ACCOMPANIED TO CAR. PT ABLE TO TRANSFER FROM W/C TO CAR. PT STATED SHE WILL MISS US DUE TO WE WAS HER ANGELS. PT WAS ABLE TO TRANSFER SELF FROM BSC TO BED TO W/C WITH STAND-BY ASSIST.
[2021-07-21 16:16] LABS: URINE BILIRUBIN NEGATIVE (Negative); URINE BLOOD NEGATIVE (Negative); URINE CLARITY CLEAR; URINE COLOR YELLOW; URINE GLUCOSE-RANDOM* NEGATIVE (Negative); URINE KETONES NEGATIVE (Negative); URINE LEUKOCYTES NEGATIVE (Negative); URINE NITRITE NEGATIVE (Negative); URINE PROTEIN (DIPSTICK) NEGATIVE (Negative); URINE UROBILINOGEN 0.2 E.U./dl (0.2-1.0)
[2021-07-22] MEDS ORDERED: METFORMIN HCL500 MG PO (10:09)
== END 2021-07-21 14:50 | disposition home health service (06) | DRG 91 ==
PROVIDERS: Hospitalist; Nurse Practitioner; Specialist; ADMIT Physical Medicine & Rehabilitation; ATTEND Physical Medicine & Rehabilitation
PROC: 3E02340 Introduction of Influenza Vaccine into Muscle, Percutaneous Approach (ICD-10-PCS; 2021-06-28)
PROC: 05HD33Z Insertion of Infusion Device into Right Cephalic Vein, Percutaneous Approach (ICD-10-PCS; principal; 2021-07-05)
DX: G72.81 Critical illness myopathy (principal); U07.1 COVID-19; G92.8 Other toxic encephalopathy; J12.82 Pneumonia due to coronavirus disease 2019; J80 Acute respiratory distress syndrome; A41.9 Sepsis, unspecified organism; R65.21 Severe sepsis with septic shock; N17.9 Acute kidney failure, unspecified; N39.0 Urinary tract infection, site not specified; Z68.44 Body mass index [BMI] 60.0-69.9, adult; I10 Essential (primary) hypertension; E78.5 Hyperlipidemia, unspecified; E11.9 Type 2 diabetes mellitus without complications; R13.10 Dysphagia, unspecified; E66.01 Morbid (severe) obesity due to excess calories; E87.6 Hypokalemia; E83.42 Hypomagnesemia; T36.3X5A Adverse effect of macrolides, initial encounter; D72.819 Decreased white blood cell count, unspecified; F01.50 Vascular dementia, unspecified severity, without behavioral disturbance, psychotic disturbance, mood disturbance, and anxiety; F32.9 Major depressive disorder, single episode, unspecified; Y92.89 Other specified places as the place of occurrence of the external cause; B96.5 Pseudomonas (aeruginosa) (mallei) (pseudomallei) as the cause of diseases classified elsewhere; Z23 Encounter for immunization
CPT/HCPCS: 10112; 27000

== ENCOUNTER 2021-07-31 13:02 | Inpatient (IN) | payer OTHER ==
[~2021-07-31] VITALS: Ht 167.6 cm; Wt 195.0 kg
[~2021-07-31 13:02] MED LIST changes: +EFFEXOR XR75 MG PO; +K-DUR 20 MEQ T20 MEQ PO; +MAGOX 400400 MG PO; +OXYGEN MISCELL; +PEPCID20 MG PO; +PROBIOTIC1 EAC7 PO; +ULTRA-LIGHT RO1 EACH MC; +VENTOLIN HFA 1818 GM INH; +VITAMIN D325 MC2 PO; +VITCB500GO PO; +ZINC SULFATE50 MG PO; +ZOFRAN ODT4 MG DISSOLVE
[2021-07-31 13:03] VITALS: BP 135/72
--- NOTE | 2021-07-31 13:31 | NUR ---
CYNDI BARRETT- [phone] SISTER
[2021-07-31 13:37] LABS: HEMATOCRIT 29.8 % (37.0-47.0); HEMOGLOBIN 9.8 gm/dL (12.0-15.0); MCHC 32.8 g/dL (28.0-37.0); MCV 85.4 fL (80.0-100.0); PLATELET COUNT 282 thou/uL (150-400); RBC 3.49 mil/uL (4.20-5.00); RDW 16.3 % (10.5-14.5); WBC 8.7 thou/uL (4.0-11.0)
[2021-07-31] MEDS ORDERED: LEXAPRO 10 MG T10 M2 PO (13:41)
[2021-07-31] MEDS ORDERED: PREDNISONE 20 M20 MG PO (13:41)
[2021-07-31] MEDS ORDERED: NORVASC5 MG PO (13:41)
[2021-07-31] MEDS ORDERED: ZITHROMAX250 MG PO (13:41)
[2021-07-31 13:49] LABS: CALCIUM 9.5 mg/dL (8.5-10.1); CREATININE 1.1 mg/dL (0.6-1.0)
[2021-07-31 13:54] LABS: POTASSIUM 2.9 mmol/L (3.5-5.1)
[2021-07-31 14:01] LABS: ABSOLUTE NEUTROPHILS 6.4 thou/uL (1.4-8.2); METAMYELOCYTES 1 %
[2021-07-31 14:03] LABS: ANISOCYTOSIS 1+
--- NOTE | 2021-07-31 15:48 | EKG ---
[address] [place] [address] ELECTROCARDIOGRAM REPORT Name: DEBORAH COLBERT [id number] Admission: 07/31/21 Attend Phys: Discharge: Date of : 70 Report #: [id number] [facility] ED Test Date: 2021-07-31 Test Time: 13:13:57 Pat Name: DEBORAH COLBERT Department: Room: Gender: F Bar Host: JESSICA : 1970 Requested By: Belen Peterson Order Number: [id number] MD: Shaun Alas Measurements Intervals Elizabeth Rate: 99 P: DE: QRS: 4 QRSD: 83 T: 41 QT: 339 QTc: 435 Interpretive Statements NSR Low voltage, precordial leads Compared to ECG 05/20/2021 19:18:13 Sinus tachycardia no longer present Electronically Signed On 07-31-2021 15:48:24 CDT by Shaun Alas [email or web address] <ELECTRONICALLY SIGNED> By: Shaun Alas MD, [facility] 07/31/21 1548 1313 1313 Shaun Alas MD, FACC /EPI
[2021-07-31 17:12] LABS: URINE BILIRUBIN NEGATIVE (Negative); URINE BLOOD NEGATIVE (Negative); URINE CLARITY CLEAR; URINE COLOR YELLOW; URINE GLUCOSE-RANDOM* NEGATIVE (Negative); URINE KETONES NEGATIVE (Negative); URINE NITRITE-REFLEX NEGATIVE (Negative); URINE PROTEIN (DIPSTICK) NEGATIVE (Negative); URINE UROBILINOGEN 0.2 E.U./dl (0.2-1.0)
[2021-07-31 17:14] LABS: URINE LEUKOCYTES-REFLEX 1+ (Negative)
[2021-07-31 17:25] LABS: CASTS None Seen /LPF (None Seen); CRYSTALS None Seen /LPF (None Seen); SQUAMOUS 0-3 Few /LPF (0-3); URINE RBC None Seen /HPF (NONE SEEN); URINE WBC-REFLEX 6-15 Few /HPF (0-5)
[2021-07-31 17:33] LABS: BE(vivo) 6.1 mmol/L (-2 to +3); HCO3 30.4 mmol/L (22.0-26.0); PCO2 42.6 mmHg (35.0-45.0); PO2 63.3 mmHg (80.0-100.0); pH 7.471 (7.360-7.450); sO2 93.4 % (92.0-98.0)
[2021-07-31 17:35] LABS: MAGNESIUM 1.6 mg/dL (1.8-2.4)
[2021-07-31 18:53] LABS: HEMATOCRIT 27.1 % (37.0-47.0); HEMOGLOBIN 9.1 gm/dL (12.0-15.0); MCH 28.6 pg (26.0-34.0); MCHC 33.7 g/dL (28.0-37.0); MCV 84.7 fL (80.0-100.0); RBC 3.2 mil/uL (4.20-5.00); RDW 16.1 % (10.5-14.5); WBC 9.2 thou/uL (4.0-11.0)
[2021-07-31 19:07] LABS: APTT 41.1 Seconds (24.5-32.8); PROTIME 10.9 Seconds (10.5-12.1)
[2021-07-31 20:11] VITALS: BP 130/77
[2021-07-31 20:30] VITALS: BP 124/80
[2021-07-31 23:49] VITALS: BP 133/71
--- NOTE | 2021-08-01 02:02 | NUR ---
PT ARRIVED IN THE UNIT AT AROUND 2030 HRS. ADMISSION COMPLETED. PT IS UP WITH SBA TO THE BSC. PT DENIES PAIN, SHE IS ON /. SHE IS AFEBRILE. REDNESS NOTED TO LLE, SHE REPORTS SWELLING IS GONE DOWN A LITTLE BIT SINCE BEING DIURESED IN ED. HEPARIN DRIP WAS ORDERED IN ER-THIS NURSE NOTED THE ORDER IN EMAR CHART CHECK WAS BEING COMPLETED. DRIP INITIATED AT 2318 HRS AND NEXT APTT DRAW ORDERED FOR 0500 HRS. HS ACCUCHECK OF 112.NSR ON TELEMETRY.CALL LIGHT WITHIN REACH.
[2021-08-01 03:15] VITALS: BP 126/81
[2021-08-01 05:10] LABS: CALCIUM 9.6 mg/dL (8.5-10.1); CREATININE 0.9 mg/dL (0.6-1.0); MAGNESIUM 1.6 mg/dL (1.8-2.4)
[2021-08-01 05:12] LABS: HEMATOCRIT 27.6 % (37.0-47.0); HEMOGLOBIN 9.4 gm/dL (12.0-15.0); MCHC 33.9 g/dL (28.0-37.0); MCV 85.4 fL (80.0-100.0); PLATELET COUNT 253 thou/uL (150-400); RBC 3.23 mil/uL (4.20-5.00); RDW 16.7 % (10.5-14.5); WBC 7.2 thou/uL (4.0-11.0)
[2021-08-01 05:19] LABS: POTASSIUM 2.6 mmol/L (3.5-5.1)
[2021-08-01 08:00] VITALS: BP 113/69
--- NOTE | 2021-08-01 09:14 | NUR ---
Chart review. DX: Chest pain, soa , leg swelling, hx of past covid. Was here for a while on vent and then dc to [facility]. She dc home with hh on 07/21/21 from acute rehab here. She moved to an apartment in [place], [place] closer to family. Went to her pcp dr hawkins yesterday for insurance leg swelling and was sent here for follow up. Cm visited wit her, she was tearful. hard to be back here per wilfred. Active listening and support. priscilla will see her as well for support. Prior to covid she was living along, independent, no dme, managing own medication and works outside the home. Since acute rehab, has dme needs, home o2, walker. Thank you for checking on me per wilfred. cm notified cater hh. When ready for Dc, and if over the weekend fax dc orders to rob fax # [phone], phone # [phone]
[2021-08-01 10:37] LABS: ABSOLUTE NEUTROPHILS 4.7 thou/uL (1.4-8.2); METAMYELOCYTES 1 %
[2021-08-01 10:38] LABS: ANISOCYTOSIS 1+
--- NOTE | 2021-08-01 12:26 | 2DMMODE ---
[facility] [place] [address] 2 D/M-MODE ECHOCARDIOGRAM Name: DEBORAH COLBERT Room #: 200-I ADM IN M.R.#: [id number] Admission: 07/31/21 Attend Phys: Renato Zayas MD Discharge: Date of : 70 Report #: [id number] THIS REPORT FOR: cc: Sonia Guthrie MD,Cb Chanel MD, MD ~ APPROVED REPORT Study performed: 08/01/2021 11:10:21 EXAM: Comprehensive 2D, Doppler, and color-flow Echocardiogram Patient Location: Bedside Room #: 200 Status: routine BSA: 2.72 HR: 86 bpm BP: 113/69 mmHg Rhythm: NSR Other Information Study Quality: Technically DifficultTechnically Limited Technically limited study due to body habitus, inability to position patient. Indications Diabetes Dyspnea Hypertension/HDD Morbid Obesity Aortic Valve AoV Peak J Luis.: 1.59 m/s AO Peak Gr.: 10.17 mmHg LVOT Max P.61 mmHg LVOT Max V: 1.07 m/s Pulmonary Valve PV Peak J Luis.: 1.31 m/s PV Peak Gr.: 6.86 mmHg Left Ventricle The left ventricle is normal size. There is normal LV segmental wall motion. There is normal left ventricular wall thickness. The left ventricular systolic function is normal. The left ventricular ejection fraction is within the normal range. LVEF is 55%. This study is not technically sufficient to allow evaluation of the LV diastolic [facility] [address] [place] [address] 2 D/M-MODE ECHOCARDIOGRAM Name: DEBORAH COLBERT Room #: 200-I ADM IN M.R.#: [id number] Admission: 07/31/21 Attend Phys: Renato Zayas MD Discharge: Date of : 70 Report #: [id number] function. Right Ventricle The right ventricle is normal size. The right ventricular systolic function is normal. Atria The left atrium size is normal. The right atrium size is normal. Aortic Valve The aortic valve is normal in structure. No aortic regurgitation is present. There is no aortic valvular stenosis. Mitral Valve The mitral valve is normal in structure. There is no mitral valve regurgitation noted. No evidence of mitral valve stenosis. Tricuspid Valve The tricuspid valve is normal in structure. There is no tricuspid valve regurgitation noted. Pulmonic Valve The pulmonary valve is normal in structure. There is no pulmonic valvular regurgitation. Great Vessels The aortic root is normal in size. The inferior vena cava is not well visualized. Pericardium There is no pericardial effusion. <Conclusion> The left ventricle is normal size. There is normal left ventricular wall thickness. The left ventricular systolic function is normal. The right ventricle is normal size. The left atrium size is normal. The aortic valve is normal in structure. There is no mitral valve regurgitation noted. <ELECTRONICALLY SIGNED> By: Cb Castellanos MD 08/01/21 1226 25 25 Cb Castellanos MD /INF
[2021-08-01 13:00] VITALS: BP 95/87
--- NOTE | 2021-08-01 13:25 | NUR ---
S.C. CARE CONSULT WAS COMPLETED BY THIS SLEEVE MAKER TODAY. THE MACHINE TOOL DRESSER WAS ALSO NOTIFIED ABOUT HER NEEDS AND CONCERNS. LAY EUCHARIST SOLAR HOT WATER INSTALLER WAS TO ALSO SEE HER THIS MORNING.
[2021-08-01 14:32] LABS: POTASSIUM 3.3 mmol/L (3.5-5.1)
[2021-08-01 16:30] VITALS: BP 127/75
--- NOTE | 2021-08-01 16:54 | NUR ---
VAT CONSULTED FOR MIDLINE. PT'S LABS,MEDS,HX VIEWED. LADY BASILIC WAS WIDELY PATENT WITH USG. 20CM BIOFLO MIDLINE INSERTED TO 2CM EXTERNAL WITH BRISK BR. PT TOLERATED WELL. ML RELEASED FOR IMMEDIATE USE PER PROTOCOL
--- NOTE | 2021-08-01 19:11 | NUR ---
Patient is A/Ox4, pleasant able to make needs known. Tearful at times due to situation and being back in hospital. vss afebrile. SR on monitor. Denies pain at this time. Continues on heparin gtt.Midline ordered and placed in right upper arm. Echo done today . Continues with POC.
[2021-08-01 20:25] VITALS: BP 121/63
[2021-08-02 03:03] LABS: HEMATOCRIT 28.2 % (37.0-47.0); HEMOGLOBIN 9.3 gm/dL (12.0-15.0); MCH 28.4 pg (26.0-34.0); MCHC 32.9 g/dL (28.0-37.0); MCV 86.1 fL (80.0-100.0); RBC 3.27 mil/uL (4.20-5.00); RDW 16.8 % (10.5-14.5); WBC 7.5 thou/uL (4.0-11.0)
[2021-08-02 03:13] LABS: CALCIUM 9.5 mg/dL (8.5-10.1); MAGNESIUM 1.8 mg/dL (1.8-2.4); POTASSIUM 3.2 mmol/L (3.5-5.1)
[2021-08-02 03:30] VITALS: BP 118/67
[2021-08-02 05:17] LABS: BE(vivo) 10.1 mmol/L (-2 to +3); HCO3 36.2 mmol/L (22.0-26.0); PCO2 57.2 mmHg (35.0-45.0); PO2 70.3 mmHg (80.0-100.0); pH 7.419 (7.360-7.450)
[2021-08-02 07:42] VITALS: BP 122/68
--- NOTE | 2021-08-02 07:59 | NUR ---
SLEPT MOST OF SHIFT. MONITOR HEP GTT PER PROTOCOL. UP TO COMODE WITH STANDBY ASSIST. NO PRESENT COMPLAINTS. DOES NOT WANT ANYMORE ABGS DRAWN. CONTINUE TO ASSES.
[2021-08-02 11:24] VITALS: BP 105/49
[2021-08-02 15:10] VITALS: BP 107/44
[2021-08-02 19:02] VITALS: BP 109/43
[2021-08-03 04:31] VITALS: BP 120/69
--- NOTE | 2021-08-03 04:46 | NUR ---
UP TO COMODE WITH STEADY GAIT. MAINTAIN HEPARIN GTT PER PROTOCOL. WORKING ON GOALS AND PLAN OF CARE FOR NOC. COMPLAINTS OF SHOULDER PAIN WITH MEDS GIVEN WITH RELIEF. CONTINUE TO ASSES. REMAINS SAD.
[2021-08-03 06:53] LABS: ABSOLUTE NEUTROPHILS 3.8 thou/uL (1.4-8.2); BASOPHILS 0.7 % (0.0-2.0); EOSINOPHILS 4.5 % (0.0-3.0); HEMATOCRIT 26.7 % (37.0-47.0); HEMOGLOBIN 8.6 gm/dL (12.0-15.0); LYMPHOCYTES 26.7 % (24.0-44.0); MCH 28.1 pg (26.0-34.0); MCHC 32.3 g/dL (28.0-37.0); MCV 86.7 fL (80.0-100.0); MONOCYTES 7.6 % (1.0-8.0); PLATELET COUNT 242 thou/uL (150-400); POLYS 60.5 % (36.0-66.0); RBC 3.08 mil/uL (4.20-5.00); RDW 16.9 % (10.5-14.5); WBC 6.3 thou/uL (4.0-11.0)
[2021-08-03 07:08] LABS: ALBUMIN 2.9 g/dL (3.4-5.0); CALCIUM 9.1 mg/dL (8.5-10.1); CREATININE 0.8 mg/dL (0.6-1.0); MAGNESIUM 1.7 mg/dL (1.8-2.4); PHOSPHORUS 6.2 mg/dL (2.6-4.7); POTASSIUM 3.4 mmol/L (3.5-5.1); TOTAL BILIRUBIN 0.2 mg/dL (0.2-1.0); TOTAL PROTEIN 6.1 g/dL (6.4-8.2)
[2021-08-03 07:17] VITALS: BP 111/78
[2021-08-03 11:25] VITALS: BP 111/77
[2021-08-03 15:53] VITALS: BP 119/73
[2021-08-03 19:37] VITALS: BP 118/60
--- NOTE | 2021-08-03 19:52 | NUR ---
PT IS AXOX4, SOME ANXIOUSNESS AND APPEARS SAD; VSS, AFEBRILE, SR ON THE MONITOR. PT C/O PAIN IN SHOULDERS FROM PULLING SELF UP AND MOVING AROUND WITH WALKER. PT ABLE TO BE [facility], SITS UP ON SIDE OF BED TO EAT. DR HEATH CONSULTED. HEPARIN GTT CURRENTLY AT 20.6ML/HR, LAST APTT 50.4. POC IS TO CONTINUE HEPARIN GTT; PSYCH CONSULT; PT/OT CONSULTED; ELECTROLYTE PROTOCOL. FALL PRECAUTIONS IN PLACE; NO CONCERNS AT THIS TIME.
[2021-08-04 00:29] LABS: HEMATOCRIT 26.5 % (37.0-47.0); HEMOGLOBIN 8.7 gm/dL (12.0-15.0); MCH 28.6 pg (26.0-34.0); MCHC 32.8 g/dL (28.0-37.0); MCV 87.2 fL (80.0-100.0); PLATELET COUNT 249 thou/uL (150-400); RBC 3.04 mil/uL (4.20-5.00); RDW 17.1 % (10.5-14.5); WBC 8.2 thou/uL (4.0-11.0)
[2021-08-04 00:41] LABS: CALCIUM 9.2 mg/dL (8.5-10.1); CREATININE 0.9 mg/dL (0.6-1.0); PHOSPHORUS 5.1 mg/dL (2.6-4.7); POTASSIUM 3.6 mmol/L (3.5-5.1)
[2021-08-04 00:58] LABS: ABSOLUTE NEUTROPHILS 5.3 thou/uL (1.4-8.2); ANISOCYTOSIS 1+
[2021-08-04 05:47] VITALS: BP 138/78
[2021-08-04 07:13] VITALS: BP 129/71
[2021-08-04] MEDS ORDERED: PROTONIX40 M2 PO (10:36)
[2021-08-04] MEDS ORDERED: ACETAMINOPHEN325 M1 PO (10:36)
[2021-08-04] MEDS ORDERED: CALCIUM ACETAT667 MG PO (10:36)
[2021-08-04] MEDS ORDERED: K-DUR 20 MEQ T20 MEQ PO (10:36)
[2021-08-04] MEDS ORDERED: MAGNESIUM400 MG PO (10:36)
[2021-08-04] MEDS ORDERED: IPRAT-ALBUT 0.5-3 ML INH (10:36)
[2021-08-04] MEDS ORDERED: ALPRAZOLAM 0.50.5 M1 PO (10:36)
[2021-08-04] MEDS ORDERED: CEFDINIR300 MG PO (10:36)
[2021-08-04 10:54] VITALS: BP 130/82
--- NOTE | 2021-08-04 11:18 | NUR ---
PT IS AXOX4, COOPERATIVE, BUT SAD. VSS, AFEBRILE, SR ON THE MONITOR. PT HAS STATED SHE IS DEPRESSED AND UPSET ABOUT BEING IN THE HOSPITAL, BUT READY TO GO HOME. DR MEADE CONSULTED. HEPARIN GTT D/C THIS AM. PT TO DISCHARGE, HOWEVER FAMILY "DOES NOT WANT TO PICK ME UP AND THINKS I NEED TO GO TO A PENITENTIARY FACILITY." PT HAS AGREED TO A PSYCH CONSULT. CASE MGMT CONSULTED. WILL FOLLOW UP REGARDING DISCHARGE.
[2021-08-04 15:00] VITALS: BP 131/73
--- NOTE | 2021-08-04 16:41 | NUR ---
met with patient and discussed dc home with HH care. Sp with [facility] this am they are accepting of patient for home health. they have referral but never started with care. Rec a call from brother to call him regarding patient to dc. Sp with patient who reports she sp with family to alert she was discharged home with HH care. She reports her mother started to cry. She reports her family had a family meeting over weekend. Her sister, brother and mother in agreement she needs rehab prior to home. PT notes safe for home. Patient has home oxygen, walker and wc at home. She has elevator access to her condo/apt. Patient requests if can return to acute rehab here at [facility]. She was recently dc from acute rehab. Sp with Nicole werner with [facility], who sp with Dr Gomez. Insurance likely not auth acute rehab. Discussed HH vs skilled care. Sp with OT Tosin who gave patient information for tray for walker. She documented home with care. Gave patient [employer] skiled list to review. Casemgt sp with brother. Updated brother therapy has cleared home with HH but he reports continued family believes she needs more rehab prior to home. Sp with patient she wants referral to [facility] skilled care. Sent referral for review.
--- NOTE | 2021-08-04 18:18 | NUR ---
Patient is A/OX4 able to make needs known. vss afebrile. patient decided to go to a skilled facility for rehab. Patient is not disharging home today. Waiting approval at a snf facility. continue with poc.
[2021-08-04 19:12] VITALS: BP 130/75
[2021-08-05 03:24] VITALS: BP 120/75
--- NOTE | 2021-08-05 05:50 | NUR ---
ASSUMED CARE OF PT AT 1900. PT IS AN AOX4 CELLULITIS PT WHO RESTED THROUGHOUT THE NIGHT IN BED WITH FEW COMPLAINTS, VSS. IS ABLE TO AMBULATE TO THE COMMODE WITH MINIMAL ASSISTANCE, CONTINENT X2. COMPLAINED OF SOME L ANKLE PAIN AROUND CELLULITIS, WILL UPDATE CARE TEAM IN AM - COULD BE DUE TO EXCESSIVE THERAPY AMBULATION TODAY. LADY MIDLINE SL. TYLENOL AND XANAX GIVEN TO CONTROL PAIN AND ANXIETY AT BEDTIME. INPUT LOVENOX SUBQ 40 DAILY AND DDIMER LAB IN AM PER MD GREYSON TAYLOR. WILL CONTINUE TO MONITOR.
[2021-08-05 07:00] VITALS: BP 133/66
[2021-08-05 11:00] VITALS: BP 134/61
--- NOTE | 2021-08-05 14:07 | NUR ---
Spoke with [facility] who reports they will not have bed avail for patient. This was not conveyed yesterday. Updated patient. She requests referral to [facility]. they are also full. Faxed referral to [facility]. Left message with admissions.
[2021-08-05 15:00] VITALS: BP 113/65
--- NOTE | 2021-08-05 15:40 | NUR ---
PT RESTING COMFORTABLY, AFEBRILE, ADEQUATE UOP, NO BM, FAIR APPETITE. PLAN TO DC TO [facility]? PT HAS BEEN THOUROUGHLY UPDATED AND EDUCATED ON PT CONDITION AND POC, PT SLOWLY PROGRESSING TOWARDS POC.
--- NOTE | 2021-08-05 17:55 | NUR ---
[facility] cont to review. Faxed referral packet to [facility].
[2021-08-05 19:52] VITALS: BP 133/77
[2021-08-06] VITALS (7 sets, daily range): BP systolic 99–127; BP diastolic 49–84
--- NOTE | 2021-08-06 08:00 | NUR ---
slept most of shift. up to comode as needed. awaiting rehab placement. continue to asses.
--- NOTE | 2021-08-06 12:01 | NUR ---
Spoke with Farrah Graff who reports no bed today maybe tomorrow but not likely. Updated patient who reports she spoke with Luciano at [facility] and agree[facility]
--- NOTE | 2021-08-07 03:05 | NUR ---
SLEEPING AT PRESENT TIME. UP TO COMODE WITH SLOW STEADY GAIT. MAINTAIN SAFE ENVIRONMENT. TYLENOL GIVEN NEEDED FOR SHOULDER PAINS. WORKING ON GOALS AND PLAN OF CARE FOR NOC. PROGRESSING SLOWLY TOWARDS DISCHARGE GOALS TO REHAB POSSIBLY TODAY. CONTINUE TO [facility]A ROLL[facility].
[2021-08-07 04:01] VITALS: BP 139/76
[2021-08-07 07:19] VITALS: BP 134/89
[2021-08-07 11:15] VITALS: BP 133/77
--- NOTE | 2021-08-07 14:05 | NUR ---
Nutrition: pt admitted with LE cellulitis, hypoxemia post COVID. Seen for LOS. Familiar with pt from previous extended hospital stay for COVID, respiratory failure, vent then transfer to rehab unit. Extreme class 3 obesity with BMI 69.8. Eats 100% of meals. Hx DM but BG controlled. Would benefit from caloric restriction and previously on carb controlled diet so will add. On vitamin D and C, zinc sulfate. 08/06 BM. Currently awaiting insurance authorization for SNF. Ambulation remains issue-critical illness myopathy. Pt would benefit from lifestyle changes/controlled weight loss. Previously provided diet tips. Pt's sister also previously had asked RD about bariatric surgery. Place as low risk
[2021-08-07 15:54] VITALS: BP 144/93
--- NOTE | 2021-08-07 17:25 | NUR ---
no auth for [employer] at this time. Notified patient.
--- NOTE | 2021-08-07 17:46 | HC ---
[facility] [place] [address] CONSULTATION Name: DEBORAH COLBERT Room #: 200-I ADM IN M.R.#: [id number] Admission: 07/31/21 Attend Phys: Inocente Rivera MD Discharge: Date of : 70 Report #: [id number] THIS REPORT FOR: cc: Sonia Guthrie MD,Sean Friedman MD, MD ~ DATE OF SERVICE: 08/04/2021 REASON FOR CONSULTATION: Question regarding anticoagulation. REQUESTING PHYSICIAN: Dr. Zayas. HISTORY OF PRESENT ILLNESS: The patient is a 50-year-old morbidly obese woman who had COVID-19 pneumonia approximately 2 months ago. Initially, she was admitted to [facility] in May with shortness of breath and mental status changes. She was diagnosed with COVID-19 pneumonitis and had diffuse bilateral infiltrates. She recovered after a prolonged hospitalization, requiring intubation and vent support. Subsequently, she was extubated on 06/17 and discharged to acute inpatient rehab center. She was readmitted again on 06/24 with pseudomonas UTI. She improved and discharged home on 07/21. She was seen by PCP yesterday for followup. Physician noticed left lower extremity edema, possible cellulitis and the patient was advised to go the ER for further evaluation. She reported some shortness of breath, although oxygen requirement was the same. Doppler ultrasound was done on lower extremities and was negative for DVT. The patient was found to have hypokalemia with potassium of 2.9. She was admitted to the hospital. She is started on IV antibiotics. She did not have any shortness of breath throughout hospital stay. D-dimer was elevated on admission. The patient was started on therapeutic dose of heparin. Hematology consult is requested. She could not have chest CTA because of obesity. She was not able to have V/Q scan because of morbid obesity again. She is doing well. She is stilting at bedside, just finished physical therapy. She does not have shortness of breath. Does not have chest pain. She denies hemoptysis. Does not have any pleuritic chest pain. Lower extremity edema and erythema has improved. She was advised by physical therapy for possible rehab. She is very disappointed. She does not have any fevers. PAST MEDICAL HISTORY: Significant for chronic pneumonitis, morbid obesity. She is oxygen dependent since COVID-19 pneumonia. She has hypertension. Diabetes mellitus. SOCIAL HISTORY: She does not smoke, does not drink alcohol excessively. FAMILY HISTORY: Noncontributory. PHYSICAL EXAMINATION: GENERAL: Reveals morbidly obese woman, not in acute distress. [address] [address] CONSULTATION Name: DEBORAH COLBERT Room #: 200-I [facility] IN ..#: [id number] Admission: 07/31/21 Attend Phys: Inocente Rivera MD Discharge: Date of : 70 Report #: [id number] VITAL SIGNS: Blood pressure 100/60. She is afebrile, respirations 18. She is on oxygen 2 liters of nasal cannula. NECK: Supple. HEART: Normal S1, S2. LUNGS: Clear. No pleuritic rub. There is mild bibasilar crackles. EXTREMITIES: No erythema, no swelling. MENTAL STATUS: Alert and oriented x3. LABORATORY DATA: White count 8.2, hemoglobin 8.7, platelets 246. Sodium 143, potassium 3.8. D-dimer today is 0.529. Ultrasound of lower extremity, no DVT. ASSESSMENT AND PLAN: Elevated D-dimer. The patient does not have documented pulmonary embolus. She does not have lower extremity venous thrombosis. Her oxygen requirement has not changed since she has been admitted to the hospital, stays at baseline. The patient has been on oxygen 2 liters per nasal cannula as an outpatient. I am not sure it was degree of clinical suspicious for PE. D-dimer elevation is probably nonspecific, may be related to infection, inflammation. I recommend to change anticoagulation to prophylactic dose of Lovenox. Therapeutic heparin has been discontinued this morning. <ELECTRONICALLY SIGNED> By: Sean Panchal MD 08/07/21 [id number] Sean Panchal MD /nt
[2021-08-07 19:09] VITALS: BP 133/76
--- NOTE | 2021-08-08 03:04 | NUR ---
SLEPT MOST OF SHIFT. TYLENOL GIVEN NEEDED FOR SHOULDER PAIN. AWAITING DISCHARGE TO REHAB. WORKING ON GOALS AND PLAN OF CARE FOR NOC. UP TO COMODE WITH STEADY GAIT. CONTINUE TO [facility].
[2021-08-08 04:42] VITALS: BP 116/78
[2021-08-08 07:15] VITALS: BP 118/66
[2021-08-08 08:54] VITALS: BP 118/66
--- NOTE | 2021-08-08 13:26 | NUR ---
ATTEMPTED TO CALL REPORT TO [facility], HOWEVER, NO ONE ANSWERED. GAVE MY CALL BACK NUMBER TO A STAFF MEMBER FOR THE NURSE TO CALL ME BACK. STAYED ON HOLD FOR APPROXIMATLEY 10-15 MINUTES TO TRY AND GIVE REPORT.
--- NOTE | 2021-08-08 13:41 | NUR ---
TOOK OVER CARE OF THIS PATIENT AT 0700. PATIENT RESTING IN BED AT THIS TIME. DENIES ANY NEEDS AT THIS TIME. PLAN TO DISCHARGE TODAY TO [facility]. PATIENT AGREEABLE TO DISCHARGE PLAN. PATIENT ANXIOUS ABOUT GOING TO FACILITY; ADMINISTERED PRN ANXIETY MEDICATION.
--- NOTE | 2021-08-08 14:17 | NUR ---
Rec auth for skilled care at [facility]. Chart copied. Transfer forms faxed. RN has number for report. bariatric wc van for 1300. Patient aware and will alert her brother. No further needs.
== END 2021-08-08 14:01 | DRG 871 ==
LOC: ER 13:02 → EROBS 16:40 → 2N 16:40 → ER 16:40 → 2N 20:15 → ER 20:15 → EROBS 20:15 → 2N 08-05 07:27
PROVIDERS: Emergency Medicine; Internal Medicine; Nurse Practitioner; ADMIT Internal Medicine; ATTEND Internal Medicine
PROC: 05HB33Z Insertion of Infusion Device into Right Basilic Vein, Percutaneous Approach (ICD-10-PCS; principal; 2021-08-01)
DX: A41.9 Sepsis, unspecified organism (principal); J18.9 Pneumonia, unspecified organism; J96.21 Acute and chronic respiratory failure with hypoxia; L03.116 Cellulitis of left lower limb; N17.9 Acute kidney failure, unspecified; G72.81 Critical illness myopathy; N39.0 Urinary tract infection, site not specified; Z68.44 Body mass index [BMI] 60.0-69.9, adult; E66.01 Morbid (severe) obesity due to excess calories; I10 Essential (primary) hypertension; E78.5 Hyperlipidemia, unspecified; E11.9 Type 2 diabetes mellitus without complications; E87.6 Hypokalemia; F41.9 Anxiety disorder, unspecified; R53.81 Other malaise; R13.10 Dysphagia, unspecified; I87.2 Venous insufficiency (chronic) (peripheral); E83.42 Hypomagnesemia; B96.20 Unspecified Escherichia coli [E. coli] as the cause of diseases classified elsewhere; B96.1 Klebsiella pneumoniae [K. pneumoniae] as the cause of diseases classified elsewhere; D63.8 Anemia in other chronic diseases classified elsewhere; Z20.822 Contact with and (suspected) exposure to COVID-19; Z79.01 Long term (current) use of anticoagulants; Z86.16 Personal history of COVID-19
CPT/HCPCS: 10081; 27000

== ENCOUNTER → 2021-10-06 | Outpatient (CLI) | payer OTHER ==
[~2021-10-06] MED LIST changes: +ACETAMINOPHEN325 M1 PO; +ALPRAZOLAM 0.50.5 M1 PO; +CALCIUM ACETAT667 MG PO; +CEFDINIR300 MG PO; +IPRAT-ALBUT 0.5-3 ML INH; +LEXAPRO 10 MG T10 M2 PO; +MAGNESIUM400 MG PO; +PREDNISONE 20 M20 MG PO; +PROTONIX40 M2 PO; +ZITHROMAX250 MG PO
== END ==
LOC: RAD 13:03
PROVIDERS: ATTEND Internal Medicine Pulmonary Disease
DX: R06.02 Shortness of breath (principal); M47.814 Spondylosis without myelopathy or radiculopathy, thoracic region